=== PATIENT | female | born 1970 | race Caucasian/White ===

== ENCOUNTER 2019-02-02 14:00 | Emergency (ER) | payer OTHER, MEDICAID, SELFPAY ==
[2019-02-02 14:08] VITALS: BP 107/66; PULSE 98; RESP 22; TEMP 36.8; O2SAT 98
--- NOTE | 2019-02-02 14:20 | DI.RAD.S_ITS ---
PROCEDURE: XR CHEST 1V INDICATIONS: orthorpnea TECHNIQUE: One view of the chest was acquired. COMPARISON: [facility], CHRIS, RIBS UNILATERAL WITH PA CXR, 04/22/2012, 1:01. [facility], CHRIS, CHEST 2 VIEW, 08/19/2011, 23:25. FINDINGS: Surgical changes and devices: None. Lungs and pleura: Lungs are clear. No pleural effusions or pneumothorax. Mediastinum: Mediastinal contours appear normal. Heart size is normal. Bones and chest wall: No suspicious bony lesions. Overlying soft tissues appear unremarkable. IMPRESSION: No acute pulmonary process. Dictated by: Stephanie Leung M.D. on 02/02/2019 at 14:53 Approved by: Stephanie Leung M.D. on 02/02/2019 at 14:53
--- NOTE | 2019-02-02 14:25 | ED.NAVMDI ---
HPI - Nausea/Vomiting/Diarrhea <ENOC Valle - Last Filed: 02/02/19 22:12> General Chief complaint: Nausea/Vomiting/Diarrhea Stated complaint: n&v/urinary retension/urine brown x4-5 days ago Time Seen by Provider: 02/02/19 14:07 Source: patient Mode of arrival: wheelchair Limitations: no limitations History of Present Illness HPI Narrative: This is a 48-year-old female, previous smoker and IV drug user, presents to ED with nausea vomiting, subjective fever and chills for last 4-5 days. Patient reports has not had much p.o. intake of fluids or solid food due to nausea and vomiting. Patient reports no urine output for about last 24 hours. Patient noticed jaundice to her sclera and very dark urine when she had, right upper quadrant discomfort. Last night she felt difficulty breathing and noticed orthopnea and chest pain. Patient reports about a year ago she was told had severely increased liver enzymes but she had signed out against medical advice. 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 Patient felt so weak today had to get assistance from her father getting off the toilet. She reports has hysterectomy history in 2004. Related Data Home Medications Medication Instructions Recorded Confirmed buprenorphine-naloxone [Suboxone] 1 film SUBLINGUAL DIRECTED 02/02/19 02/02/19 Allergies Allergy/AdvReac Type Severity Reaction Status Date / Time No Known Drug Allergies Allergy Verified 02/02/19 17:13 Review of Systems <ENOC Valle - Last Filed: 02/02/19 22:12> Review of Systems Narrative: General: See HPI HEENT: Denies sinus pain, ear pain, sore throat, difficulty swallowing, dizziness. Respiratory: See HPI Cardiovascular: See HPI Gastrointestinal: See HPI : See HPI Musculoskeletal: Denies weakness, joint pain or bony pain. Skin: See HPI Neurologic: Reports weakness. headache, numbness, change in speech, confusion, seizures, incoordination. Psychiatric: No concerning psychosocial issues. 12-point review of systems is negative except for those stated above. PFSH <ENOC Valle - Last Filed: 02/02/19 22:12> Medical History (Updated 02/02/19 @ 18:40 by ENOC Valle) History of hysterectomy (Acute) Social History (Updated 02/02/19 @ 14:47 by ENOC Valle) Smoking Status: Former smoker substance use type: former substance user, heroin and IV drugs Social History (Updated 02/02/19 @ 14:47 by ENOC Valle) Smoking Status: Former smoker substance use type: former substance user, heroin and IV drugs Exam <ENOC Valle - Last Filed: 02/02/19 22:12> Narrative Exam Narrative: GEN: Alert, oriented x 3, ill appearing and under nourished, and mild distress. Head: Normal cephalic, atraumatic. No scalp or temporal tenderness, palpable mass or rash. EYES: Pupils are equal, round, and reactive to light and accommodation. Extraocular muscles are intact bilaterally. There is no subconjunctival hemorrhage, exudate and sclera mild icteric. ENT: Hearing grossly intact. Nose without bleeding, purulent discharge or deviation. Facial sinuses nontender to palpate. Mucous membrane dry, no mucosal lesion. Throat without erythema, tonsillar hypertrophy or exudate. Uvula in midline, airway patent. Neck: Trachea in midline. No JVD, non-tender without lymphadenopathy. No masses or thyroid megaly. Supple, non-tender and no meningeal signs. CARDIAC: Normal regular rate and rhythm without murmurs, gallops, or rubs. No chest wall tenderness. No peripheral edema, cyanosis or pallor. Capillary refill is less than 2 seconds. RESPIRATORY: Lungs are cleat to auscultate bilaterally. No cough, wheezes, rales, or rhonchi. No stridor, respiratory distress, increase work of breathing, or accessary muscle used. ABD: Abdomen soft, nontender and non-distended. No guarding or rebound tenderness to palpate. Bowel sounds are normal in all 4 quadrants. There is no palpable masses or organomegaly. EXT: Full painless ROM of all extremities with no loss of sensation, strength, effusion or edema. SKIN: Moist and warm, pale and light jaundice. No erythema, old skin lesions/scars. No unusual rash over visible areas. BACK: Nontender without deformity or crepitance. No flank tenderness. NEUROLOGICAL: Alert and oriented to place, time and person. Sensation and motor function intact bilaterally. No facial droops, dysphasia. PSYCHIATRIC: In tears. Without hallucinations, flat affect but no abnormal behaviors during the examination. Patient is not suicidal. Initial Vital Signs Initial Vital Signs: Vital Signs Temperature 98.2 F 02/02/19 14:08 Pulse Rate 98 H 02/02/19 14:08 Respiratory Rate 22 02/02/19 14:08 Blood Pressure 107/66 02/02/19 14:08 Pulse Oximetry 98 02/02/19 14:08 <Shannan Bucio DO - Last Filed: 02/03/19 08:11> Initial Vital Signs Initial Vital Signs: Vital Signs Temperature 98.2 F 02/02/19 14:08 Pulse Rate 98 H 02/02/19 14:08 Respiratory Rate 22 02/02/19 14:08 Blood Pressure 107/66 02/02/19 14:08 Pulse Oximetry 98 02/02/19 14:08 Course <ENOC Valle - Last Filed: 02/02/19 22:12> Orders Ordered: Discontinued Medications Sodium Chloride (Normal Saline 0.9%) 1,000 mls @ 999 mls/hr IV CONT STACEY Last Infusion: 02/02/19 17:11 Dose: 0 mls/hr Documented by: Admin: 02/02/19 15:50 Dose: 999 mls/hr Documented by: YANDY Sodium Chloride (Normal Saline 0.9%) 1,000 mls @ 1,000 mls/hr IV BOLUS ONE Stop: 02/02/19 18:10 Last Admin: 02/02/19 17:13 Dose: 1,000 mls/hr Documented by: EMMANUEL Piperacillin/Tazobactam/Dextrose (Zosyn) 3.375 gm in 50 mls @ 100 mls/hr IV NOW ONE Stop: 02/02/19 17:43 Last Admin: 02/02/19 17:34 Dose: 100 mls/hr Documented by: YANDY Sodium Chloride (Normal Saline 0.9%) 1,000 mls @ 150 mls/hr IV CONT STACEY Last Infusion: 02/02/19 19:02 Dose: 0 mls/hr Documented by: Infusion: 02/02/19 18:51 Dose: 150 mls/hr Documented by: Admin: 02/02/19 18:50 Dose: 150 mls/hr Documented by: YANDY Ondansetron HCl (Zofran) 4 mg IV NOW ONE Stop: 02/02/19 14:21 Last Admin: 02/02/19 15:51 Dose: 4 mg Documented by: YANDY Pantoprazole Sodium (Protonix) 40 mg IV NOW ONE Stop: 02/02/19 14:21 Last Admin: 02/02/19 15:50 Dose: 40 mg Documented by: YANDY Potassium Chloride (Klor-Con M20) 40 meq PO NOW ONE Stop: 02/02/19 17:15 Last Admin: 02/02/19 17:34 Dose: 40 meq Documented by: YANDY Vital Signs Vital signs: Vital Signs - 8 hr 02/02/19 14:08 02/02/19 16:04 02/02/19 17:07 Temperature 98.2 F Pulse Rate 98 H 84 92 H Respiratory Rate 22 16 18 Blood Pressure 107/66 Blood Pressure [Right Arm] 96/67 86/47 L Pulse Oximetry 98 99 99 02/02/19 17:27 02/02/19 18:08 02/02/19 18:58 Temperature Pulse Rate 89 86 92 H Respiratory Rate 13 16 Blood Pressure 89/55 L Blood Pressure [Right Arm] 95/64 97/46 L Pulse Oximetry 100 100 <Shannan Bucio DO - Last Filed: 02/03/19 08:11> Orders Ordered: Discontinued Medications Sodium Chloride (Normal Saline 0.9%) 1,000 mls @ 999 mls/hr IV CONT STACEY Last Infusion: 02/02/19 17:11 Dose: 0 mls/hr Documented by: Admin: 02/02/19 15:50 Dose: 999 mls/hr Documented by: YANDY Sodium Chloride (Normal Saline 0.9%) 1,000 mls @ 1,000 mls/hr IV BOLUS ONE Stop: 02/02/19 18:10 Last Admin: 02/02/19 17:13 Dose: 1,000 mls/hr Documented by: EMMANUEL Piperacillin/Tazobactam/Dextrose (Zosyn) 3.375 gm in 50 mls @ 100 mls/hr IV NOW ONE Stop: 02/02/19 17:43 Last Admin: 02/02/19 17:34 Dose: 100 mls/hr Documented by: YANDY Sodium Chloride (Normal Saline 0.9%) 1,000 mls @ 150 mls/hr IV CONT STACEY Last Infusion: 02/02/19 19:02 Dose: 0 mls/hr Documented by: Infusion: 02/02/19 18:51 Dose: 150 mls/hr Documented by: Admin: 02/02/19 18:50 Dose: 150 mls/hr Documented by: YANDY Ondansetron HCl (Zofran) 4 mg IV NOW ONE Stop: 02/02/19 14:21 Last Admin: 02/02/19 15:51 Dose: 4 mg Documented by: YANDY Pantoprazole Sodium (Protonix) 40 mg IV NOW ONE Stop: 02/02/19 14:21 Last Admin: 02/02/19 15:50 Dose: 40 mg Documented by: YANDY Potassium Chloride (Klor-Con M20) 40 meq PO NOW ONE Stop: 02/02/19 17:15 Last Admin: 02/02/19 17:34 Dose: 40 meq Documented by: YANDY Vital Signs Vital signs: Vital Signs - 8 hr 02/02/19 14:08 02/02/19 16:04 02/02/19 17:07 Temperature 98.2 F Pulse Rate 98 H 84 92 H Respiratory Rate 22 16 18 Blood Pressure 107/66 Blood Pressure [Right Arm] 96/67 86/47 L Pulse Oximetry 98 99 99 02/02/19 17:27 02/02/19 18:08 02/02/19 18:58 Temperature Pulse Rate 89 86 92 H Respiratory Rate 13 16 Blood Pressure 89/55 L Blood Pressure [Right Arm] 95/64 97/46 L Pulse Oximetry 100 100 MDM - Nausea/Vomiting/Diarrhea <ENOC Valle - Last Filed: 02/02/19 22:12> Differential Diagnosis Differential diagnosis: Likely dehydration and other (acute hepatitis, cholecystitis, cholangitis) Medical Records Attestation: I reviewed the patient's medical records. Lab Data Attestation: I reviewed the patient's lab results. Result diagrams: 02/02/19 15:30 02/02/19 15:30 Labs: Lab Results 09/09/19 09/09/19 09/09/19 Range/Units 15:30 15:30 15:30 WBC 6.0 (4.5-11.0) X10^3/uL RBC 4.46 (4.0-5.2) X10^6/uL Hgb 14.0 (12.0-16.0) g/dL Hct 40.1 (36-46) % MCV 90.1 (80-100) fL MCH 31.3 (26-34) PG MCHC 34.8 (30-36) % RDW 12.7 (11.6-14.8) % Plt Count 125 L (150-400) X10^3/uL Neut % (Auto) 48.7 L (50-75) % Lymph % (Auto) 38.3 (25-40) % [facility] % (Auto) 8.1 (3-14) % Eos % (Auto) 3.4 (2-4) % Baso % (Auto) 1.5 (0-2) % Neut # (Auto) 2900 (2935-6888) /uL Lymph # (Auto) 2300 (8487-5212) /uL [facility] # (Auto) 500 (0-900) /uL Eos # (Auto) 200 (0-450) /uL Baso # (Auto) 100 (0-100) /uL PT 14.0 H (10.1-12.7) SECONDS INR 1.2 (0.9-1.3) APTT 37 H (26.4-36.2) SECONDS Sodium (137-145) mmol/L Potassium (3.4-5.1) mmol/L Chloride (98-107) mmol/L Carbon Dioxide (22-32) mmol/L BUN (7-17) mg/dL Creatinine (0.52-1.04) mg/dL Estimated GFR (>60) mL/min BUN/Creatinine Ratio (6-22) Glucose (70-100) mg/dL Lactate (0.7-2.1) mmol/L Calcium (8.4-10.2) mg/dL Total Bilirubin (0.2-1.3) mg/dL AST (14-36) IU/L ALT (9-52) IU/L Alkaline Phosphatase (38-126) U/L Total Creatine Kinase (30-135) U/L CK-MB (CK-2) CK-MB (CK-2) Rel Index Troponin I (0.01-0.034) ng/mL Total Protein (6.3-8.2) g/dL Albumin (3.5-5.0) g/dL Globulin (1.7-4.1) g/dL Albumin/Globulin Ratio (1.0-2.8) Lipase (23-300) U/L Procalcitonin 0.88 H (<0.5) ng/mL Acetaminophen (10-30) ug/mL 02/02/19 02/02/19 02/02/19 Range/Units 15:30 15:30 15:30 WBC (4.5-11.0) X10^3/uL RBC (4.0-5.2) X10^6/uL Hgb (12.0-16.0) g/dL Hct (36-46) % MCV (80-100) fL MCH (26-34) PG MCHC (30-36) % RDW (11.6-14.8) % Plt Count (150-400) X10^3/uL Neut % (Auto) (50-75) % Lymph % (Auto) (25-40) % [facility] % (Auto) (3-14) % Eos % (Auto) (2-4) % Baso % (Auto) (0-2) % Neut # (Auto) (8890-6847) /uL Lymph # (Auto) (5642-5734) /uL [facility] # (Auto) (0-900) /uL Eos # (Auto) (0-450) /uL Baso # (Auto) (0-100) /uL PT (10.1-12.7) SECONDS INR (0.9-1.3) APTT (26.4-36.2) SECONDS Sodium 136 L (137-145) mmol/L Potassium 3.3 L (3.4-5.1) mmol/L Chloride 93 L (98-107) mmol/L Carbon Dioxide 31 (22-32) mmol/L BUN 15 (7-17) mg/dL Creatinine 0.50 L (0.52-1.04) mg/dL Estimated GFR > 60.0 (>60) mL/min BUN/Creatinine Ratio 30.0 H (6-22) Glucose 128 H (70-100) mg/dL Lactate 1.2 (0.7-2.1) mmol/L Calcium 8.9 (8.4-10.2) mg/dL Total Bilirubin 6.6 H (0.2-1.3) mg/dL AST 2267 H (14-36) IU/L ALT 3068 H (9-52) IU/L Alkaline Phosphatase 348 H (38-126) U/L Total Creatine Kinase 21 L (30-135) U/L CK-MB (CK-2) TNP CK-MB (CK-2) Rel Index TNP Troponin I < 0.012 (0.01-0.034) ng/mL Total Protein 7.2 (6.3-8.2) g/dL Albumin 3.7 (3.5-5.0) g/dL Globulin 3.5 (1.7-4.1) g/dL Albumin/Globulin Ratio 1.1 (1.0-2.8) Lipase 72 (23-300) U/L Procalcitonin (<0.5) ng/mL Acetaminophen (10-30) ug/mL 02/02/19 Range/Units 15:30 WBC (4.5-11.0) X10^3/uL RBC (4.0-5.2) X10^6/uL Hgb (12.0-16.0) g/dL Hct (36-46) % MCV (80-100) fL MCH (26-34) PG MCHC (30-36) % RDW (11.6-14.8) % Plt Count (150-400) X10^3/uL Neut % (Auto) (50-75) % Lymph % (Auto) (25-40) % [facility] % (Auto) (3-14) % Eos % (Auto) (2-4) % Baso % (Auto) (0-2) % Neut # (Auto) (8837-6562) /uL Lymph # (Auto) (1654-8144) /uL [facility] # (Auto) (0-900) /uL Eos # (Auto) (0-450) /uL Baso # (Auto) (0-100) /uL PT (10.1-12.7) SECONDS INR (0.9-1.3) APTT (26.4-36.2) SECONDS Sodium (137-145) mmol/L Potassium (3.4-5.1) mmol/L Chloride (98-107) mmol/L Carbon Dioxide (22-32) mmol/L BUN (7-17) mg/dL Creatinine (0.52-1.04) mg/dL Estimated GFR (>60) mL/min BUN/Creatinine Ratio (6-22) Glucose (70-100) mg/dL Lactate (0.7-2.1) mmol/L Calcium (8.4-10.2) mg/dL Total Bilirubin (0.2-1.3) mg/dL AST (14-36) IU/L ALT (9-52) IU/L Alkaline Phosphatase (38-126) U/L Total Creatine Kinase (30-135) U/L CK-MB (CK-2) CK-MB (CK-2) Rel Index Troponin I (0.01-0.034) ng/mL Total Protein (6.3-8.2) g/dL Albumin (3.5-5.0) g/dL Globulin (1.7-4.1) g/dL Albumin/Globulin Ratio (1.0-2.8) Lipase (23-300) U/L Procalcitonin (<0.5) ng/mL Acetaminophen < 10 L (10-30) ug/mL Imaging Data US-abdomen : Radiologist's impression: [place] [address] Ultrasound Report Signed Patient: Gunner Christy [facility]#: [id number] : 1970Acct:[id number] Age/Sex: 48 / FDate of Service: 02/02/19 Loc: ED Accession Number: [id number] Procedure: US abdomen complete Ordering Provider: Ty Jones PROCEDURE: US ABDOMEN COMPLETE INDICATIONS: RUQ PAIN, JAUNDICE TECHNIQUE: Real-time scanning was performed of the abdominal and retroperitoneal organs, with image documentation. COMPARISON: [facility], CT, ABDOMEN/PELVIS WITH CONTRAST, 04/09/2017, 4:37. [facility], US, ABDOMEN COMPLETE, 04/09/2017, 1:39. FINDINGS: Liver: The liver demonstrates diffusely increased echotexture without focal abnormalities consistent with chronic hepatocellular disease/hepatic steatosis. Gallbladder: Gallbladder demonstrates areas of mild wall thickening measuring up to 4 mm in thickness. There is a positive sonographic Hurst sign. Small amount of pericholecystic fluid. No gallstones identified. Biliary ducts: Intrahepatic bile ducts are non-dilated. Extrahepatic bile duct caliber measures 4 mm. Normal is 6-7 mm or less in diameter, or 10 mm or less post-cholecystectomy. Pancreas: Visualized portions of the pancreas are sonographically normal. Spleen: Mild splenomegaly as before. Spleen measures up to 14 cm in maximum dimension. Kidneys: Kidneys are normal in size and echotexture. Right kidney measures 11.4 cm long; left kidney measures 12.3 cm long. No hydronephrosis or nephrolithiasis. No solid masses. Aorta: Visualized aorta is normal in caliber at less than 3 cm. Iliacs: Proximal common iliac arteries are normal in caliber at less than 2.5 cm. IVC: Intrahepatic inferior vena cava is patent. Miscellaneous: No free abdominal fluid. Prominent periportal lymph node near the main portal vein measuring up to 1.4 cm in maximum short axis dimension. IMPRESSION: 1. Persistent gallbladder wall thickening with pericholecystic fluid and positive sonographic Hurst's sign. No gallstones identified. Findings may represent acute acalculous cholecystitis. No biliary ductal dilatation. 2. Persistent mild splenomegaly. 3. The liver demonstrates diffusely increased echotexture without focal abnormalities consistent with chronic hepatocellular disease/hepatic steatosis. Dictated by: Zhang Mendiola M.D. on 02/02/2019 at 15:39 Approved by: Zhang Mendiola M.D. on 02/02/2019 at 15:46 Chest x-ray: Radiologist's impression: [address] [address] XRay Report Signed Patient: Gunner Christy [facility]#: [id number] : 1970Acct:[id number] Age/Sex: 48 / FDate of Service: 02/02/19 Loc: ED Accession Number: [id number] Procedure: XR chest 1V Ordering Provider: Ty Jones PROCEDURE: XR CHEST 1V INDICATIONS: orthorpnea TECHNIQUE: One view of the chest was acquired. COMPARISON: [facility], CR, RIBS UNILATERAL WITH PA CXR, 04/22/2012, 1:01. [facility], CR, CHEST 2 VIEW, 08/19/2011, 23:25. FINDINGS: Surgical changes and devices: None. Lungs and pleura: Lungs are clear. No pleural effusions or pneumothorax. Mediastinum: Mediastinal contours appear normal. Heart size is normal. Bones and chest wall: No suspicious bony lesions. Overlying soft tissues appear unremarkable. IMPRESSION: No acute pulmonary process. Dictated by: Stephanie Leung M.D. on 02/02/2019 at 14:53 Approved by: Stephanie Leung M.D. on 02/02/2019 at 14:53 ECG Data Attestation: I personally reviewed and interpreted this ECG as follows: Prior ECG tracings: available for review Interpretation: Sinus rhythm rate at 85. Normal axis. No ST elevation or depression. Previous EKG shows sinus rhythm with first-degree AV block. MDM Narrative Medical decision making narrative: This is a 48-year-old female with history of heroin IV drug use and currently is taking Suboxone and drug free for the last 14 months. She complain of right upper quadrant pain with multiple nausea vomiting for 4 days with difficulty breathing noticed yesterday. She had subjective fever and chills. Her sister noticed jaundice for last 4 days. Patient has history of on sure type of hepatitis. Her physical exam showed positive Hurst's sign but no organomegaly felt. She reports has been eating well for last 4-5 days and no urine output for last 24 hour. When she arrived she was tachycardic with normal respiration blood pressure. She had no elevated white count, mildly decreased platelet count, PT and PTT but with normal INR. LFT test shows significantly elevated AST, ALT, alkaline phosphatase with bilirubin of 6.6. Patient had subjective fever and chills. Lactate level was normal. Hepatitis panel is pending, patient has not voided yet after 2 L of normal saline. Her blood pressure has been decreased to mid 80s to 90s with heart rate in 80s. Without ST elevation or depression. The past she had normal sinus with first-degree AV block. Chest x-ray is without acute findings. Ultrasound on abdomen test indicates acute acalculous cholecystitis, no bile duct dilation was seen, mild splenomegaly, chronic hepatocellular disease or hepatic steatosis. Patient was treated with IV Zosyn 3.375 G. The patient's cardiac enzyme test was negative. Bladder scan was done and shows 250 of urine in her bladder after the 2nd L IV fluid infusion. The patient's case was discussed with hospital general surgeon and he recommended that patient should be transfer out to higher care of setting who has a GI specialist in case patient needs ERCP. [facility] GI specialist was consulted and he states this patient does not appears to be needing ERCP at this time. He suggested patient being consulted for medical for acute hepatitis disease. Kindly, Dr. Oneill the hospitalist except the patient and her care for an evaluation and treatment. Patient will be transferred to [facility] via [facility] level for higher level of care. All required documents has been signed and provided to transfer team. Patient is alert oriented at this time, blood pressure remaining in upper 90s and systolic with 60s and diastolic. Patient reports her nausea has improved. Patient agrees with treatment plan and transfer to [place]. Before patient transfer to [place], procalcitonin result came back as 0.88 which is elevated from normal range of 0.5. <Shannan Bucio, - Last Filed: 02/03/19 08:11> Lab Data Labs: Lab Results 02/02/19 02/02/19 02/02/19 Range/Units 15:30 15:30 15:30 WBC 6.0 (4.5-11.0) X10^3/uL RBC 4.46 (4.0-5.2) X10^6/uL Hgb 14.0 (12.0-16.0) g/dL Hct 40.1 (36-46) % MCV 90.1 (80-100) fL MCH 31.3 (26-34) PG MCHC 34.8 (30-36) % RDW 12.7 (11.6-14.8) % Plt Count 125 L (150-400) X10^3/uL Neut % (Auto) 48.7 L (50-75) % Lymph % (Auto) 38.3 (25-40) % [facility] % (Auto) 8.1 (3-14) % Eos % (Auto) 3.4 (2-4) % Baso % (Auto) 1.5 (0-2) % Neut # (Auto) 2900 (9297-7633) /uL Lymph # (Auto) 2300 (9907-0050) /uL [facility] # (Auto) 500 (0-900) /uL Eos # (Auto) 200 (0-450) /uL Baso # (Auto) 100 (0-100) /uL PT 14.0 H (10.1-12.7) SECONDS INR 1.2 (0.9-1.3) APTT 37 H (26.4-36.2) SECONDS Sodium (137-145) mmol/L Potassium (3.4-5.1) mmol/L Chloride (98-107) mmol/L Carbon Dioxide (22-32) mmol/L BUN (7-17) mg/dL Creatinine (0.52-1.04) mg/dL Estimated GFR (>60) mL/min BUN/Creatinine Ratio (6-22) Glucose (70-100) mg/dL Lactate (0.7-2.1) mmol/L Calcium (8.4-10.2) mg/dL Total Bilirubin (0.2-1.3) mg/dL AST (14-36) IU/L ALT (9-52) IU/L Alkaline Phosphatase (38-126) U/L Total Creatine Kinase (30-135) U/L CK-MB (CK-2) CK-MB (CK-2) Rel Index Troponin I (0.01-0.034) ng/mL Total Protein (6.3-8.2) g/dL Albumin (3.5-5.0) g/dL Globulin (1.7-4.1) g/dL Albumin/Globulin Ratio (1.0-2.8) Lipase (23-300) U/L Procalcitonin 0.88 H (<0.5) ng/mL Acetaminophen (10-30) ug/mL 02/02/19 02/02/19 02/02/19 Range/Units 15:30 15:30 15:30 WBC (4.5-11.0) X10^3/uL RBC (4.0-5.2) X10^6/uL Hgb (12.0-16.0) g/dL Hct (36-46) % MCV (80-100) fL MCH (26-34) PG MCHC (30-36) % RDW (11.6-14.8) % Plt Count (150-400) X10^3/uL Neut % (Auto) (50-75) % Lymph % (Auto) (25-40) % [facility] % (Auto) (3-14) % Eos % (Auto) (2-4) % Baso % (Auto) (0-2) % Neut # (Auto) (7545-8149) /uL Lymph # (Auto) (5350-1091) /uL [facility] # (Auto) (0-900) /uL Eos # (Auto) (0-450) /uL Baso # (Auto) (0-100) /uL PT (10.1-12.7) SECONDS INR (0.9-1.3) APTT (26.4-36.2) SECONDS Sodium 136 L (137-145) mmol/L Potassium 3.3 L (3.4-5.1) mmol/L Chloride 93 L (98-107) mmol/L Carbon Dioxide 31 (22-32) mmol/L BUN 15 (7-17) mg/dL Creatinine 0.50 L (0.52-1.04) mg/dL Estimated GFR > 60.0 (>60) mL/min BUN/Creatinine Ratio 30.0 H (6-22) Glucose 128 H (70-100) mg/dL Lactate 1.2 (0.7-2.1) mmol/L Calcium 8.9 (8.4-10.2) mg/dL Total Bilirubin 6.6 H (0.2-1.3) mg/dL AST 2267 H (14-36) IU/L ALT 3068 H (9-52) IU/L Alkaline Phosphatase 348 H (38-126) U/L Total Creatine Kinase 21 L (30-135) U/L CK-MB (CK-2) TNP CK-MB (CK-2) Rel Index TNP Troponin I < 0.012 (0.01-0.034) ng/mL Total Protein 7.2 (6.3-8.2) g/dL Albumin 3.7 (3.5-5.0) g/dL Globulin 3.5 (1.7-4.1) g/dL Albumin/Globulin Ratio 1.1 (1.0-2.8) Lipase 72 (23-300) U/L Procalcitonin (<0.5) ng/mL Acetaminophen (10-30) ug/mL 02/02/19 Range/Units 15:30 WBC (4.5-11.0) X10^3/uL RBC (4.0-5.2) X10^6/uL Hgb (12.0-16.0) g/dL Hct (36-46) % MCV (80-100) fL MCH (26-34) PG MCHC (30-36) % RDW (11.6-14.8) % Plt Count (150-400) X10^3/uL Neut % (Auto) (50-75) % Lymph % (Auto) (25-40) % [facility] % (Auto) (3-14) % Eos % (Auto) (2-4) % Baso % (Auto) (0-2) % Neut # (Auto) (7577-5743) /uL Lymph # (Auto) (9869-8981) /uL [facility] # (Auto) (0-900) /uL Eos # (Auto) (0-450) /uL Baso # (Auto) (0-100) /uL PT (10.1-12.7) SECONDS INR (0.9-1.3) APTT (26.4-36.2) SECONDS Sodium (137-145) mmol/L Potassium (3.4-5.1) mmol/L Chloride (98-107) mmol/L Carbon Dioxide (22-32) mmol/L BUN (7-17) mg/dL Creatinine (0.52-1.04) mg/dL Estimated GFR (>60) mL/min BUN/Creatinine Ratio (6-22) Glucose (70-100) mg/dL Lactate (0.7-2.1) mmol/L Calcium (8.4-10.2) mg/dL Total Bilirubin (0.2-1.3) mg/dL AST (14-36) IU/L ALT (9-52) IU/L Alkaline Phosphatase (38-126) U/L Total Creatine Kinase (30-135) U/L CK-MB (CK-2) CK-MB (CK-2) Rel Index Troponin I (0.01-0.034) ng/mL Total Protein (6.3-8.2) g/dL Albumin (3.5-5.0) g/dL Globulin (1.7-4.1) g/dL Albumin/Globulin Ratio (1.0-2.8) Lipase (23-300) U/L Procalcitonin (<0.5) ng/mL Acetaminophen < 10 L (10-30) ug/mL Critical Care Time <Ty [email or web address] - Last Filed: 02/02/19 22:12> Critical Care Time Critical Care Time: Yes Total Critical Care Time: 30 Attestation: Reviewing test results including blood, chest x-ray, EKG, ultrasound. And coordinating patient's admission, or transfer to higher level of care by phone calls. Discharge Plan Departure Patient Disposition: [facility] Clinical Impression: Acute acalculous cholecystitis, Hepatitis, Acute dehydration Discharge Date/Time: 02/02/19 18:55 Prescriptions: No Action buprenorphine-naloxone [Suboxone] 8-2 mg film 1 film sublingual DIRECTED RF: 0 Referrals: Mark Parkinson MD [Primary Care Provider] -
--- NOTE | 2019-02-02 15:18 | PC.NURSE ---
Unable to gain IV access. Lian Gibbons at bedside w/ US assisted midline insertion.
[2019-02-02] MEDS: PANTOPRAZOLE 40 MG VIAL IV (15:50)
[2019-02-02] MEDS: SODIUM CHLORIDE 0.9% 1,000 ML 999 ML IV (15:50)
[2019-02-02] MEDS: ONDANSETRON 4 MG/2 ML INJ IV (15:51)
[2019-02-02 15:52] LABS: Add Manual Diff / Slide Review NO; Basophils Absolute Auto 100 /uL (0-100); Basophils Percent Auto 1.5 % (0-2); Eosinophils Absolute Auto 200 /uL (0-450); Eosinophils Percent Auto 3.4 % (2-4); Hematocrit 40.1 % (36-46); Lymphocytes Absolute Auto 2300 /uL (1100-4500); Lymphocytes Percent Auto 38.3 % (25-40); Mean Corpuscular HGB Conc 34.8 % (30-36); Mean Corpuscular Hemoglobin 31.3 PG (26-34); Mean Corpuscular Volume 90.1 fL (80-100); Monocytes Absolute Auto 500 /uL (0-900); Monocytes Percent Auto 8.1 % (3-14); Neutrophils Absolute Auto 2900 /uL (1500-7000); Neutrophils Percent Auto 48.7 % (50-75); Platelet Count 125 X10^3/uL (150-400); Red Blood Cell Count 4.46 X10^6/uL (4.0-5.2); Red Cell Distribution Width 12.7 % (11.6-14.8)
[2019-02-02 15:57] LABS: INR 1.2 (0.9-1.3)
[2019-02-02 15:59] LABS: PTT Partial Thromboplastin Tim 37 SECONDS (26.4-36.2)
--- NOTE | 2019-02-02 16:01 | PC.NURSE ---
20g 8cm power midline cath placed via ultrasound in upper left arm Basilic vein, labs drawn and line flushes well. Pt tollerated procedure well.
[2019-02-02 16:04] VITALS: BP 96/67; PULSE 84; RESP 16; O2SAT 99
[2019-02-02 16:04] LABS: Albumin 3.7 g/dL (3.5-5.0); Albumin Globulin Ratio 1.1 (1.0-2.8); Alkaline Phosphatase 348 U/L (38-126); Bilirubin Total 6.6 mg/dL (0.2-1.3); Blood Urea Nitrogen 15 mg/dL (7-17); Calcium 8.9 mg/dL (8.4-10.2); Carbon Dioxide 31 mmol/L (22-32); Chloride 93 mmol/L (98-107); Estimated Glomerular Filt Rate > 60.0 mL/min (>60); Globulin 3.5 g/dL (1.7-4.1); Glucose 128 mg/dL (70-100); HEMOLYSIS < 15 (0-50); Lactate (Lactic Acid) 1.2 mmol/L (0.7-2.1); Lipase 72 U/L (23-300); Potassium 3.3 mmol/L (3.4-5.1); Sodium 136 mmol/L (137-145); Total Protein 7.2 g/dL (6.3-8.2)
[2019-02-02 16:05] LABS: Creatine Kinase 21 U/L (30-135)
[2019-02-02 16:20] LABS: Troponin I < 0.012 ng/mL (0.01-0.034)
[2019-02-02 16:21] LABS: Alanine Aminotransferase 3068 IU/L (9-52); Aspartate Aminotransferase 2267 IU/L (14-36)
[2019-02-02 16:50] LABS: Acetaminophen < 10 ug/mL (10-30)
[2019-02-02 16:55] LABS: Procalcitonin 0.88 ng/mL (<0.5)
[2019-02-02 17:07] VITALS: BP 86/47; PULSE 92; RESP 18; O2SAT 99
[2019-02-02] MEDS: SODIUM CHLORIDE 0.9% 1,000 ML 1000 ML IV (17:13)
[2019-02-02 17:27] VITALS: BP 95/64; PULSE 89
[2019-02-02] MEDS: POTASSIUM CHLORIDE 20 MEQ TAB 40 MEQ PO (17:34)
[2019-02-02] MEDS: PIPERACILLIN-TAZO 3.375 GM/50 ML FROZ.PIGGY IV (17:34)
[2019-02-02 18:08] VITALS: BP 97/46; PULSE 86; RESP 13; O2SAT 100
[2019-02-02] MEDS: SODIUM CHLORIDE 0.9% 1,000 ML 150 ML IV (18:50)
[2019-02-02 18:58] VITALS: BP 89/55; PULSE 92; RESP 16; O2SAT 100
[2019-02-07 14:53] LABS: Hepatitis A Antibody IgM NONREACTIVE; Hepatitis B Core Antibody IgM NONREACTIVE; Hepatitis B Surface Antigen NONREACTIVE; Hepatitis C Antibody REACTIVE
--- NOTE | 2019-02-23 14:25 | PC.NURSE ---
late entry per LEN. Pallavi IV completed on 02/02/2019 at 1750, CRISELDA IV completed 1830.
== END 2019-02-02 18:55 | disposition short-term general hospital (02) ==
PROVIDERS: Emergency Provider Nurse Practitioner Family; PCP Family Medicine
DX: K81.0 Acute cholecystitis (principal); K75.9 Inflammatory liver disease, unspecified; E86.0 Dehydration
CPT/HCPCS: 36591; 51798; 71045; 76700; 80053; 80074; 80329; 82550; 83605; 83690; 84145; 84484; 85025; 85610; 85730; 93005; 93010; 96361; 96365; 96375; 99284; 99285; C9113; G0480; J2405; J2543

== ENCOUNTER 2019-08-27 18:17 | Emergency (ER) | payer OTHER, MEDICAID, SELFPAY ==
[2019-08-27 18:20] VITALS: BP 124/73; PULSE 98; RESP 14; TEMP 36.6; O2SAT 100; BMI 21.2
--- NOTE | 2019-08-27 18:27 | ED.ABDPAIN ---
HPI - Abdominal Pain <ENOC Alba - Last Filed: 08/27/19 19:51> General Chief Complaint: Urogenital-Female Stated Complaint: states bad UTI Time Seen by Provider: 08/27/19 18:23 History of Present Illness HPI narrative: 49-year-old female with a history of heroin use, presents to the emergency department for dysuria, frequency, and increased urinary urgency the past month. She also noted she developed right sided flank pain over the past week. She states she is going into treatment for heroin use and needs to have her it UTI treated. She states she has a history of frequent UTIs, she was ?nervous to come into the emergency department for treatment due to the coronavirus. Patient states she last injected heroin this morning, denies any fevers, chills, nausea, vomiting, diarrhea, abdominal pain, dizziness, or any other concerns. Related Data Home Medications Medication Instructions Recorded Confirmed buprenorphine-naloxone [Suboxone] 1 film SUBLINGUAL DIRECTED 02/02/19 02/02/19 Previous Rx's Medication Instructions Recorded cephalexin 500 mg PO BID 14 Days #28 cap 08/27/19 Allergies Allergy/AdvReac Type Severity Reaction Status Date / Time No Known Drug Allergies Allergy Verified 08/27/19 18:29 Review of Systems <ENOC Alba - Last Filed: 08/27/19 19:51> Review of Systems Narrative: REVIEW OF SYSTEMS: GENERAL: Denies fever or chills. HENT: No head trauma. CARDIOVASCULAR: No chest pain. RESPIRATORY: No shortness of breath or cough. GASTROINTESTINAL: No nausea, vomiting, or abdominal pain, see HPI. GENITOURINARY: Reports dysuria, See HPI. No vaginal discharge or dyspareunia. Denies concerns for STIs MUSCULOSKELETAL: No trauma. INTEGUMENTARY: No rash, lesions, or pruritus. NEURO: No memory loss or confusion. Patient History <ENOC Alba - Last Filed: 08/27/19 19:51> Medical History Heroin use (Acute) Surgical History History of hysterectomy (Acute) Social History Smoking Status: Former smoker substance use type: former substance user, heroin and IV drugs Smoking Status: Former smoker Exam <ENOC Alba - Last Filed: 08/27/19 19:51> Initial Vital Signs Initial Vital Signs: Vital Signs Temperature 97.9 F 08/27/19 18:20 Pulse Rate 98 H 08/27/19 18:20 Respiratory Rate 14 08/27/19 18:20 Blood Pressure 124/73 08/27/19 18:20 Pulse Oximetry 100 08/27/19 18:20 PHYSICAL EXAMINATION: GENERAL: Well groomed, alert, and cooperative. Answers questions promptly and appropriately. Vital signs noted. HENT: Normocephalic, atraumatic. Hearing intact. EYES: No periorbital swelling. CARDIOVASCULAR: Regular rate. RESPIRATORY: Normal respiratory rate, trachea midline, airway patent. No stridor, nasal flaring or accessory muscle use. GASTROINTESTINAL: Bowel sounds normoactive. Abdomen is soft and non-tender. No organomegaly, no palpable masses. GENITALURINARY: Mild right CVA tenderness. MUSCULOSKELETAL: Normal gait and coordination. Equal tone and mass bilaterally. SKIN: Warm, dry, soft, appropriate color for ethnicity. No lesions, rashes, or wounds to visulized areas. NEURO: Alert and Oriented X 3. Good coordination. No ataxia, or sensory deficits, or cognitive issues. PSYCH: Appropriate affect and mood. <Valentino Oquendo DO - Last Filed: 08/27/19 20:39> Initial Vital Signs Initial Vital Signs: Vital Signs Temperature 97.9 F 08/27/19 18:20 Pulse Rate 98 H 08/27/19 18:20 Respiratory Rate 14 08/27/19 18:20 Blood Pressure 124/73 08/27/19 18:20 Pulse Oximetry 100 08/27/19 18:20 Course <ENOC Alba - Last Filed: 08/27/19 19:51> Course Course Narrative: Patient was given her 1st dose of antibiotics in the emergency department due to high risk factors for noncompliance such as drug use and plans for rehab. Orders Ordered: ED Orders 08/27/19 18:20 Urine Culture Stat Urine Microscopic Stat Discontinued Medications Cephalexin HCl (Keflex) 500 mg PO NOW ONE Stop: 08/27/19 18:47 Last Admin: 04/02/20 19:05 Dose: 500 mg Documented by: YANDY Vital Signs Vital signs: Vital Signs - 8 hr 08/27/19 18:20 Temperature 97.9 F Pulse Rate 98 H Respiratory Rate 14 Blood Pressure 124/73 Pulse Oximetry 100 <Valentino Oquendo DO - Last Filed: 08/27/19 20:39> Orders Ordered: ED Orders 08/27/19 18:20 Urine Culture Stat Urine Microscopic Stat Discontinued Medications Cephalexin HCl (Keflex) 500 mg PO NOW ONE Stop: 08/27/19 18:47 Last Admin: 08/27/19 19:05 Dose: 500 mg Documented by: YANDY Vital Signs Vital signs: Vital Signs - 8 hr 08/27/19 18:20 Temperature 97.9 F Pulse Rate 98 H Respiratory Rate 14 Blood Pressure 124/73 Pulse Oximetry 100 MDM - Abdominal Pain <EONC Alba - Last Filed: 08/27/19 19:51> Medical Records Attestation: I reviewed the patient's medical records. Lab Data Attestation: I reviewed the patient's lab results. Labs: Lab Results 08/27/19 Range/Units 18:20 Urine RBC 0-1/hpf (0-5/HPF) Urine WBC 10-30/hpf H (0-5/HPF) Ur Squamous Epith Cells 1-5 /hpf (0-5/HPF) Ur Transition Epith Cell 1-5/hpf (0-5/HPF) Urine Bacteria Many (>30) H (None) Urine Trichomonas 1-5/hpf H (None Seen) Ur Culture Indicated? Specimen cultured Point of care testing: Urine Dip Bedside Urine Glucose Negative Bedside Urine Bilirubin - Negative Bedside Urine Ketone - Negative Urine Specific Seffner 1.020 Bedside Urine Occult Blood - Negative Bedside Urine pH 6.5 Bedside Urine Protein +/- 15 Bedside Urine Urobilinogen +/- 1mg Bedside Urine Nitrite + Positive Bedside Urine Leukocytes ++ 125 Esterase MDM Narrative Medical decision making narrative: History and examination concerning for pyelonephritis due to right-sided flank pain, CVA tenderness, POC and microscopic urine positive for white blood cells, bacteria, and nitrates. Patient was given cephalexin to treat condition. She was given the 1st dose in the emergency department due to high risk factors for noncompliance. Patient is a candidate for outpatient treatment of pyelonephritis due to lack of nausea, uncontrollable vomiting, high fevers, or severe pain. She was counseled extensively to return emergency department for any new or worsening symptoms. She agreed to plan of care verbalized understanding. <Valentino Oquendo DO - Last Filed: 08/27/19 20:39> Lab Data Labs: Lab Results 08/27/19 Range/Units 18:20 Urine RBC 0-1/hpf (0-5/HPF) Urine WBC 10-30/hpf H (0-5/HPF) Ur Squamous Epith Cells 1-5 /hpf (0-5/HPF) Ur Transition Epith Cell 1-5/hpf (0-5/HPF) Urine Bacteria Many (>30) H (None) Urine Trichomonas 1-5/hpf H (None Seen) Ur Culture Indicated? Specimen cultured Point of care testing: Urine Dip Bedside Urine Glucose Negative Bedside Urine Bilirubin - Negative Bedside Urine Ketone - Negative Urine Specific Seffner 1.020 Bedside Urine Occult Blood - Negative Bedside Urine pH 6.5 Bedside Urine Protein +/- 15 Bedside Urine Urobilinogen +/- 1mg Bedside Urine Nitrite + Positive Bedside Urine Leukocytes ++ 125 Esterase Discharge Plan Departure Patient Disposition: Home Clinical Impression: Pyelonephritis Discharge Date/Time: 08/27/19 19:12 Instructions: DI for Kidney Infection Activity Restrictions/Additional Instructions: Thank you for entrusting me with your care today. As discussed, your test results show that you have a urinary tract infection, due to your right-sided back pain you most likely have pyelonephritis which is an infection in your kidney. I prescribed you an antibiotic this was sent to [facility] in [place], please take this complete course so that the infection does not return. We will call you in 2-3 days if your antibiotics need to be changed based off your urine culture. Return to the emergency department for any new or worsening symptoms such as uncontrollable vomiting, severe pain, high fevers, weakness, syncope, or any other concerns. Prescriptions: New cephalexin 500 mg capsule 500 mg PO BID 14 Days Qty: 28 RF: 0 No Action buprenorphine-naloxone [Suboxone] 8-2 mg film 1 film sublingual DIRECTED RF: 0 Referrals: Mark Parkinson MD [Primary Care Provider] - <Valentino Oquendo DO - Last Filed: 08/27/19 20:39> Cosign ED Attending Cosignature Attestation: I was immediately available in the department for consultation. This documentation has been reviewed and I agree with assessment and plan. Supervised by Valenitno Oquendo, DO
[2019-08-27 18:53] LABS: Bacteria Urine Many (>30); RBC Urine 0-1/HPF (0-5/HPF); Squamous Epithelial Cell Urine 1-5 /HPF (0-5/HPF); Transitional Epi Cells Urine 1-5/HPF (0-5/HPF); Trichomonas Urine 1-5/HPF (None Seen); WBC Urine 10-30/HPF (0-5/HPF)
[2019-08-27 18:54] LABS: Culture Indicated Urine Specimen Cultured
[2019-08-27] MEDS: cephALEXin 250 MG CAPSULE 500 MG PO (19:05)
== END 2019-08-27 19:12 | disposition home or self-care (01) ==
PROVIDERS: Emergency Provider Nurse Practitioner; PCP Family Medicine
DX: N12 Tubulo-interstitial nephritis, not specified as acute or chronic (principal); F11.10 Opioid abuse, uncomplicated
CPT/HCPCS: 81003; 81015; 87077; 87086; 87186; 99283

== ENCOUNTER 2019-09-17 22:59 | Emergency (ER) | payer OTHER, MEDICAID, SELFPAY ==
[2019-09-17 23:12] VITALS: BP 121/69; PULSE 109; RESP 15; TEMP 37.3; O2SAT 97; BMI 21.2
[2019-09-17 23:36] LABS: RBC Urine None Seen (0-5/HPF)
[2019-09-17 23:51] LABS: Squamous Epithelial Cell Urine 5-10 /HPF (0-5/HPF); WBC Urine 5-10/HPF (0-5/HPF)
[2019-09-17 23:52] LABS: Bacteria Urine Moderate (10-30); Culture Indicated Urine Cult Not Indicated; Trichomonas Urine 1-5/HPF (None Seen)
--- NOTE | 2019-09-17 23:56 | ED.GENADULT ---
HPI - General Adult General Chief complaint: Urogenital-Female Stated complaint: UTI over a week, getting worse, meds no help Time Seen by Provider: 09/17/19 23:24 Source: patient Mode of arrival: Ambulatory Limitations: no limitations History of Present Illness HPI narrative: Patient is a 49-year-old female presents the emergency department for which he states is urinary tract infection that she has had for the past several weeks that is not improving. She was seen here in the emergency department several weeks ago. Was diagnosed with pyelonephritis. Was sent home with a prescription for Keflex. Has been taking the Keflex. Is not completely done with it yet however she states that her symptoms have continued. She states she is having vaginal discharge that is colored and foul smelling. She denies any urinary symptoms. Denies any back pain or fevers or vomiting. She is tolerating the antibiotics without any problems. She states she has never had a sexually transmitted disease in the past. She does have 1 sexual partner. She stated that she was concerned about sexually transmitted diseases now that she is having this vaginal discharge and also that her symptoms are not improving with antibiotics. She also states she has had yeast infection in the past and this does not feel like a yeast infection. Related Data Home Medications Medication Instructions Recorded Confirmed buprenorphine-naloxone [Suboxone] 1 film SUBLINGUAL DIRECTED 02/02/19 02/02/19 Previous Rx's Medication Instructions Recorded cephalexin 500 mg PO BID 14 Days #28 cap 08/27/19 Allergies Allergy/AdvReac Type Severity Reaction Status Date / Time No Known Drug Allergies Allergy Verified 08/27/19 18:29 Review of Systems Constitutional Constitutional: Denies fever(s) Cardiovascular Cardiovascular: Denies chest pain and Denies dyspnea Respiratory Respiratory: Denies dyspnea Gastrointestinal Gastrointestinal: Denies nausea and Denies vomiting Genitourinary Genitourinary: Denies dysuria, Denies pelvic pain, Denies flank pain, Reports vaginal discharge and Reports vaginal odor Musculoskeletal Musculoskeletal: Denies myalgias and Denies arthralgias Integumentary/Breasts Skin/Breast: Denies rash Neurologic Neurologic: Denies behavioral changes Psychiatric Psychiatric: Denies behavioral changes Hematologic/Lymphatic Hematologic/Lymphatic: Denies easy bleeding and Denies easy bruising Patient History Medical History Heroin use (Acute) Social History Smoking Status: Former smoker substance use type: former substance user, heroin and IV drugs Smoking Status: Former smoker alcohol intake frequency: holidays/special occasions only Substance Use Type: heroin Exam Initial Vital Signs Initial Vital Signs: Vital Signs Temperature 99.1 F 09/17/19 23:12 Pulse Rate 109 H 09/17/19 23:12 Respiratory Rate 15 09/17/19 23:12 Blood Pressure 121/69 09/17/19 23:12 Pulse Oximetry 97 09/17/19 23:12 Const General: cooperative and comfortable Limitations: mental status not altered HENMT Head: normal to inspection and normocephalic Resp Effort & Inspection: normal respiratory effort Cardio Rate: regular rate GI Inspection: non-distended Skin Lesions: no lesions Rashes: no rashes Neuro General: alert, awake and oriented x3 Extrem General: normal to inspection and capillary refill normal Psych Appearance: grossly normal and well kempt Course Orders Ordered: ED Orders 09/17/19 23:05 Chlamydia Gonorrhea PCR -URINE Stat Urine Culture Stat Urine Microscopic Stat Vital Signs Vital signs: Vital Signs - 8 hr 09/17/19 23:12 Temperature 99.1 F Pulse Rate 109 H Respiratory Rate 15 Blood Pressure 121/69 Pulse Oximetry 97 Medical Decision Making Lab Data Lab results reviewed: Yes I reviewed the patient's lab results. Labs: Lab Results 09/17/19 09/17/19 Range/Units 23:05 23:05 Urine RBC None seen (0-5/HPF) Urine WBC 5-10/hpf H (0-5/HPF) Ur Squamous Epith Cells 5-10 /hpf H (0-5/HPF) Urine Bacteria Moderate (10-30) H (None) Urine Trichomonas 1-5/hpf H (None Seen) Ur Culture Indicated? Cult not indicated Ur Chlamydia DNA (PCR) Not detected N gonorrhoeae DNA (PCR) Not detected Point of Care Testing Test Results Negative Urine Dip Bedside Urine Glucose Negative Bedside Urine Bilirubin - Negative Bedside Urine Ketone - Negative Urine Specific Wilbur 1.025 Bedside Urine Occult Blood - Negative Bedside Urine pH 6.0 Bedside Urine Protein +/- 15 Bedside Urine Urobilinogen - Negative Bedside Urine Nitrite - Negative Bedside Urine Leukocytes +++ 500 Esterase Point of care testing: Point of Care Testing Test Results Negative Urine Dip Bedside Urine Glucose Negative Bedside Urine Bilirubin - Negative Bedside Urine Ketone - Negative Urine Specific Wilbur 1.025 Bedside Urine Occult Blood - Negative Bedside Urine pH 6.0 Bedside Urine Protein +/- 15 Bedside Urine Urobilinogen - Negative Bedside Urine Nitrite - Negative Bedside Urine Leukocytes +++ 500 Esterase MDM Narrative Medical decision making narrative: Her urinalysis today does have leukocyte esterase but also quite a bit epi cells. Her last visit there was a urine culture that was obtained. Review this does show a bacteria that is sensitive to cephalosporins so I suspect that Keflex would be an appropriate antibiotic for this bacteria. Patient does express that her symptoms are a vaginal discharge not a urinary discharged. She denies most of the UTI questions. Had a long discussion with her regarding her symptoms. We did discuss that potentially this could be a STI versus a yeast infection versus bacterial vaginosis. I did inform her that we would need to do a pelvic exam to further evaluate this. Also stated that we could obtain swabs to evaluate for a yeast versus bacterial vaginosis. Also informed her that we could do a urine GC and chlamydia. Stated that all of this testing she would be here in the emergency department for another hour and a half for the results to return. She states she could not wait that long. States that she has a friend watching her children at home. She stated that she would like to be discharged home and would come back in the morning when she had more time in order to complete the testing. I did order a GC and chlamydia so that if the patient did return in the morning we would have the results of this. They were eventually negative. Informed the patient that she should continue the Keflex until she returns to . She expressed understanding and agreement plan. Discharge Plan Departure Patient Disposition: Home Clinical Impression: Vaginal discharge Discharge Date/Time: 09/18/19 00:01 Activity Restrictions/Additional Instructions: I do recommend that you return to the emergency department in the morning like we discussed for further workup of your presenting symptoms. Until then continue with the current antibiotic regiment. Prescriptions: No Action buprenorphine-naloxone [Suboxone] 8-2 mg film 1 film sublingual DIRECTED RF: 0 cephalexin 500 mg capsule 500 mg PO BID 14 Days Qty: 28 RF: 0 Referrals: Mark Parkinson MD [Primary Care Provider] -
[2019-09-18 01:51] LABS: Urine N gonorrhoeae NOT DETECTED
[2019-09-18 01:54] LABS: Urine Chlamydia NOT DETECTED
== END 2019-09-18 00:01 | disposition home or self-care (01) ==
PROVIDERS: Emergency Provider Emergency Medicine; PCP Family Medicine
DX: N89.8 Other specified noninflammatory disorders of vagina (principal)
CPT/HCPCS: 81003; 81015; 81025; 87086; 87491; 87591; 99282

== ENCOUNTER 2019-09-19 03:38 | Emergency (ER) | payer OTHER, MEDICAID, SELFPAY ==
--- NOTE | 2019-09-19 03:42 | ED.GENADULT ---
HPI - General Adult General Chief complaint: Urogenital-Female Stated complaint: THINKS UTI HAS NOT GONE AWAY Time Seen by Provider: 09/19/19 03:40 Source: patient Mode of arrival: Ambulatory Limitations: no limitations History of Present Illness HPI narrative: 49-year-old female. I evaluated her here in the emergency department approximately 24 hours ago for evaluation of vaginal discharge. Prior to that she was seen here in the emergency department approximately 14 days ago where she was diagnosed with pyelonephritis. She has been on Keflex since then. She states that her symptoms really have not improved however she now describes the symptoms as vaginal discharge. During her last visit here in the ER we had a discussion regarding STI testing. Did discuss the importance of having a pelvic exam to evaluate for other potential issues such as yeast infections versus bacterial vaginosis. During that time patient stated that she could not stay in the emergency department for the time it would take to get the results back secondary to childcare issues. She stated that she would come back in the morning. After she left I did order a urine GC and chlamydia which was subsequently negative. She did not come back the next morning however decided come back at this time. She states that her symptoms have not changed since the last time she was here Related Data Home Medications Medication Instructions Recorded Confirmed buprenorphine-naloxone [Suboxone] 1 film SUBLINGUAL DIRECTED 02/02/19 02/02/19 Previous Rx's Medication Instructions Recorded cephalexin 500 mg PO BID 14 Days #28 cap 08/27/19 metronidazole [Flagyl] 500 mg PO BID 7 Days #13 tab 09/19/19 Allergies Allergy/AdvReac Type Severity Reaction Status Date / Time No Known Drug Allergies Allergy Verified 08/27/19 18:29 Review of Systems Constitutional Constitutional: Denies fever(s) Genitourinary Genitourinary: Denies hematuria, Denies dysuria, Denies pelvic pain and Reports vaginal discharge Musculoskeletal Musculoskeletal: Denies back pain Integumentary/Breasts Skin/Breast: Denies rash Patient History Medical History Heroin use (Acute) Surgical History History of hysterectomy (Acute) Social History Smoking Status: Former smoker substance use type: former substance user, heroin and IV drugs Smoking Status: Former smoker alcohol intake frequency: holidays/special occasions only Substance Use Type: heroin Exam Initial Vital Signs Initial Vital Signs: Vital Signs Temperature 98.2 F 09/19/19 03:43 Const General: cooperative and comfortable Resp Effort & Inspection: normal respiratory effort Cardio Rate: regular rate Neuro General: alert, awake and oriented x3 Cognition: normal cognition Speech: speech normal Extrem General: normal to inspection Course Orders Ordered: Discontinued Medications Metronidazole (Metronidazole) 500 mg PO NOW ONE Stop: 09/19/19 03:48 Last Admin: 09/19/19 03:55 Dose: 500 mg Documented by: LUIS FERNANDO Vital Signs Vital signs: Vital Signs - 8 hr 09/19/19 03:43 09/19/19 03:45 Temperature 98.2 F 98.3 F Pulse Rate 75 Respiratory Rate 20 Blood Pressure [Left Arm] 117/70 Pulse Oximetry 96 Medical Decision Making MDM Narrative Medical decision making narrative: Had a discussion with her regarding her symptoms. I did inform her that the gonorrhea and chlamydia test that was ordered after she left from the emergency department last evening was subsequently negative. Review of the patient's urinalysis from the last time that she was here shows that she did have Trichomonas in her urine. I suspect that this is the cause of her symptoms. I did discuss this with her. I talked with her today about her urinalysis yesterday. I stated that we still could perform a pelvic exam to evaluate further issues such as bacterial vaginosis however the treatment for Trichomonas would treat this as well. Also stated that we you would also be able to check for other issues such as yeast infections however the patient states that she has had yeast infection in the past and this does not feel like that. She denied a offered a pelvic exam today. She was given a 1st dose of metronidazole here in the ER and a prescription for the remainder. She has 1 dose of Keflex left which she will take. She was given return precautions and follow-up instructions. She expressed understanding and agreement. Discharge Plan Departure Patient Disposition: Home Clinical Impression: Trichomoniasis Instructions: DI for Trichomoniasis Activity Restrictions/Additional Instructions: Your 1st dose of metronidazole/Flagyl was given here in the emergency department. Your next dose will be this evening (Saturday). Take it as directed. I do recommend that you complete the course of Keflex. I also recommend that you contact your sexual partner to let him/her know that they should be tested/treated for Trichomonas. Recommend no sexual contact until you complete the course of metronidazole/Flagyl. It would also be richardson to have your primary doctor recheck you after the course of treatment to confirm that the infection has been properly treated. Return to the emergency department for any new or worsening symptoms Prescriptions: New metronidazole [Flagyl] 500 mg tablet 500 mg PO BID 7 Days Qty: 13 RF: 0 No Action buprenorphine-naloxone [Suboxone] 8-2 mg film 1 film sublingual DIRECTED RF: 0 cephalexin 500 mg capsule 500 mg PO BID 14 Days Qty: 28 RF: 0 Referrals: Mark Parkinson MD [Primary Care Provider] -
[2019-09-19 03:43] VITALS: TEMP 36.8
[2019-09-19 03:45] VITALS: BP 117/70; PULSE 75; RESP 20; TEMP 36.8; O2SAT 96
[2019-09-19] MEDS: metroNIDAZOLE 250 MG TABLET 500 MG PO (03:55)
--- NOTE | 2019-09-19 04:04 | PC.NURSE ---
DR Brewster had seen her yesterday for same,the female urogenital exam was deferred to DR Brewster.
== END 2019-09-19 04:10 | disposition home or self-care (01) ==
PROVIDERS: Emergency Provider Emergency Medicine; PCP Family Medicine
DX: A59.01 Trichomonal vulvovaginitis (principal)
CPT/HCPCS: 99283

== ENCOUNTER 2020-06-30 05:20 | Emergency (ER) | payer OTHER, MEDICAID, SELFPAY ==
[2020-06-30 05:29] VITALS: BP 112/65; PULSE 89; RESP 18; TEMP 36.6; O2SAT 100; BMI 23.9
--- NOTE | 2020-06-30 05:46 | ED_ITS ---
HPI - Skin/Abscess/Foreign Bdy <Vance Springer MD - Last Filed: 07/17/20 07:06> General Chief complaint: Skin/Abscess/Foreign Body Stated complaint: ABSCESS ON ARM X2 W Time Seen by Provider: 06/30/20 05:33 Source: patient Mode of arrival: Ambulatory Limitations: no limitations History of Present Illness HPI narrative: Patient here with friend. Complains of abscess to the dorsal surface of the proximal left forearm. Patient admits IV drug use. Patient states never had abscess before. Ongoing for 2 weeks. Related Data Home Medications Medication Instructions Recorded Confirmed buprenorphine-naloxone [Suboxone] 1 film SUBLINGUAL DIRECTED 02/02/19 02/02/19 Previous Rx's Medication Instructions Recorded amoxicillin 500 mg PO BID #14 cap 07/07/20 Allergies Allergy/AdvReac Type Severity Reaction Status Date / Time No Known Drug Allergies Allergy Verified 06/30/20 05:29 Review of Systems <Vance Springer MD - Last Filed: 07/17/20 07:06> Review of Systems Narrative: GENERAL: Denies chills, fatigue, malaise, fever, sweats. HEENT: Denies sinus pain, ear pain, sore throat MUSCULOSKELETAL: Complains muscle or bony pain SKIN: Denies rash, complains skin lesion NEUROLOGIC: Denies weakness, numbness ROS Unobtainable: All systems reviewed & are unremarkable except as noted in HPI and below Patient History <Vance Springer MD - Last Filed: 07/17/20 07:06> Medical History (Updated 07/15/20 @ 00:00 by ) Heroin use Surgical History History of hysterectomy Social History Smoking Status: Current every day smoker substance use type: former substance user, heroin and IV drugs Smoking Status: Current every day smoker alcohol intake frequency: holidays/special occasions only Substance Use Type: heroin Exam <Vance Springer MD - Last Filed: 07/17/20 07:06> Narrative Exam Narrative: GENERAL: in no distress, not toxic not dyspneic HEAD: Normocephalic. EXTREMITIES: Examination left upper extremity. There is extensive proximal edema of the left forearm. Circumferential. There is a very large abscess at the dorsal surface of the forearm. Hand is warm soft pink with strong radial pulse light touch intact to fingers and thumb. NEURO: AOx4. SKIN: Warm and dry PSYCH: Not anxious, is cooperative Initial Vital Signs Initial Vital Signs: Vital Signs Temperature 98 F 06/30/20 05:29 Pulse Rate 89 06/30/20 05:29 Respiratory Rate 18 06/30/20 05:29 Blood Pressure 112/65 06/30/20 05:29 Pulse Oximetry 100 06/30/20 05:29 <Shannan Woods DO - Last Filed: 06/30/20 08:59> Initial Vital Signs Initial Vital Signs: Vital Signs Temperature 98 F 06/30/20 05:29 Pulse Rate 89 06/30/20 05:29 Respiratory Rate 18 06/30/20 05:29 Blood Pressure 112/65 06/30/20 05:29 Pulse Oximetry 100 06/30/20 05:29 Course <Vance Springer MD - Last Filed: 07/17/20 07:06> Course Course Narrative: Time 7:00 a.m.. s/o dr woods, awaiting for PICC team to arrive. Patient will need IV antibiotics and admission. CT of forearm pending. IV antibiotics will be needed to be ordered after PICC placement Orders Ordered: Discontinued Medications Sodium Chloride (Normal Saline 0.9%) 500 mls @ 1,000 mls/hr IV BOLUS ONE Stop: 06/30/20 06:12 Vital Signs Vital signs: Vital Signs - 8 hr 06/30/20 05:29 Temperature 98 F Pulse Rate 89 Respiratory Rate 18 Blood Pressure 112/65 Pulse Oximetry 100 <Shannan Woods DO - Last Filed: 06/30/20 08:59> Orders Ordered: Discontinued Medications Sodium Chloride (Normal Saline 0.9%) 500 mls @ 1,000 mls/hr IV BOLUS ONE Stop: 06/30/20 06:12 Vital Signs Vital signs: Vital Signs - 8 hr 06/30/20 05:29 Temperature 98 F Pulse Rate 89 Respiratory Rate 18 Blood Pressure 112/65 Pulse Oximetry 100 MDM - Skin/Abscess/Foreign Bdy <Vance Springer MD - Last Filed: 07/17/20 07:06> Lab Data Labs: Lab Results 06/30/20 Range/Units 07:27 SARS-CoV-2 (PCR) Negative (Negative) <Shannan Woods, DO - Last Filed: 06/30/20 08:59> Lab Data Labs: Lab Results 06/30/20 Range/Units 07:27 SARS-CoV-2 (PCR) Negative (Negative) MDM Narrative Medical decision making narrative: I received sign-out from Dr. munoz seen evaluated patient myself. She is awake alert and appropriate she has large abscess on her left forearm. Her forearm is typed she has good strong radial pulse and moving her fingers easily. She has significant history of IVDA and does not have anything available. Awaiting for the PICC line. Concern for for for drainage. A DI NURSE ATTEMPTED TO TIMES TO PLACE IV. PATIENT WAS NOT TOLERATING THE IV PLACEMENT. A NURSE WAS IN THERE TO HELP OF ULNAR HAND AND WALKER THROUGH THE PROCESS and she still did not tolerate it. I offered to drain the abscess at bedside which she refused. I have discussed with her possibility of sepsis, compartment syndrome and . At this time she is refusing treatment but is agreeable to take antibiotics. She understands all of this and is still wanting to leave against medical advice The patient is clinically sober, free from distracting injury, appears to have intact insight, judgment and reason. Does not meet criteria for involuntary hospitalization. Patient has the capacity to make decisions. Discharge Plan Departure Patient Disposition: Left Against Medical Advice Clinical Impression: Abscess of arm, left Instructions: DI for Skin Abscess Activity Restrictions/Additional Instructions: You are leaving against medical advice It is strongly recommended that your abscess be opened and drained to fully get the infection out. It is possible that you have bacteria in her bloodstream which can cause serious problems and even lead to . The swelling in the arm can also lead to some nerve damage in your forearm and hand. Please keep your arm elevated as often as possible to help decrease the swelling Please fill and take your antibiotics as prescribed Bactrim 1 tablet twice a day for 10 days-->SENT TO [facility] Return to the emergency department if you should have fever weakness confusion, worsening redness inability to move fingers Prescriptions: No Action buprenorphine-naloxone [Suboxone] 8-2 mg film 1 film sublingual DIRECTED RF: 0 amoxicillin 500 mg capsule 500 mg PO BID Qty: 14 RF: 0 Referrals: Mark Parkinson MD [Primary Care Provider] - Stand Alone Forms: Against Medical Advice
[2020-06-30 07:48] LABS: COVID19 -Nasal RAPID Negative (Negative)
--- NOTE | 2020-06-30 07:55 | PC.NURSE ---
pt refused iv attempt from RN, KYA RN in room, pt refused. said she is scared. i explained the importance and informed dr. woods.
--- NOTE | 2020-06-30 08:24 | PC.NURSE ---
Pt was coached and educated on the importance of the need for venous access. Pt agreed to try the PICC line placement again. When LEN Staton went to inject the numbing medication the patient leaped off of the stretcher yelling fuck this. I'm not having surgery. I don't want it to hurt. I'm going home. No amount of reassuring was successful in getting her to stay. MD went in and tried to reason and educate the pt but was also unsuccessful. Pt leaving AMA. Pt was given a thorough d/c education packet and her antibiotics were sent to [facility].
== END 2020-06-30 08:25 | disposition left against medical advice (07) ==
PROVIDERS: Emergency Provider Emergency Medicine; PCP Family Medicine
DX: L02.414 Cutaneous abscess of left upper limb (principal); Z20.822 Contact with and (suspected) exposure to COVID-19
CPT/HCPCS: 87040; 87635; 99281; 99282; C9803

== ENCOUNTER 2020-07-07 22:02 | Emergency (ER) | payer OTHER, MEDICAID, SELFPAY ==
[2020-07-07 22:09] VITALS: BP 136/79; PULSE 115; RESP 24; TEMP 37.2; O2SAT 99; BMI 20.9
[2020-07-07 22:27] VITALS: PULSE 100
[2020-07-07 22:38] VITALS: PULSE 98
--- NOTE | 2020-07-07 22:58 | ED.DENTAL ---
HPI - Dental/Oral General Chief complaint: Dental/Oral Stated complaint: rt sided ear and jaw pain Time Seen by Provider: 07/07/20 22:50 Source: patient Mode of arrival: Ambulatory Limitations: no limitations History of Present Illness HPI Narrative: Patient is a 50-year-old female known IV DA who presents today with right ear pain on going for about 3 weeks. She states that she was diagnosed with an ear infection 3 weeks ago started on antibiotic she said the pain got better she finished the antibiotics and over the last 3 days she says the pain has gotten worse. She does have known tooth problem and she has an appointment with a dentist in a few days she can not tell if it is her ear or her tooth but the pain seems to be worsening. She denies fever or chills. She was actually seen here last week for left arm abscess she was put on Bactrim. She states that she went home and lanced it herself started the antibiotics neck has improved. Related Data Home Medications Medication Instructions Recorded Confirmed buprenorphine-naloxone [Suboxone] 1 film SUBLINGUAL DIRECTED 02/02/19 02/02/19 Previous Rx's Medication Instructions Recorded sulfamethoxazole-trimethoprim 1 tab PO BID 10 Days #20 tab 06/30/20 [Bactrim DS] amoxicillin 500 mg PO BID #14 cap 07/07/20 Allergies Allergy/AdvReac Type Severity Reaction Status Date / Time No Known Drug Allergies Allergy Verified 06/30/20 05:29 Review of Systems Review of Systems Narrative: GENERAL: Denies chills,fever HEENT: See HPI RESPIRATORY: Denies dyspnea, cough, wheezing CARDIOVASCULAR: Denies chest pain, palpitations GASTROINTESTINAL: Denies nausea, vomiting MUSCULOSKELETAL: Denies extremity pain, injury SKIN: No rash, no laceration, no pruritus NEUROLOGIC: Denies weakness, dizziness, headache, numbness 8 point review of systems is negative except for those stated above and HPI Patient History Medical History (Updated 07/07/20 @ 23:03 by Shannan Bucio DO) Heroin use Surgical History History of hysterectomy Social History Smoking Status: Current every day smoker substance use type: former substance user, heroin and IV drugs Smoking Status: Current every day smoker alcohol intake frequency: holidays/special occasions only Substance Use Type: heroin Exam Initial Vital Signs Initial Vital Signs: Vital Signs Temperature 98.9 F 07/07/20 22:09 Pulse Rate 115 H 07/07/20 22:09 Respiratory Rate 24 07/07/20 22:09 Blood Pressure 136/79 07/07/20 22:09 Pulse Oximetry 99 07/07/20 22:09 GENERAL: Well-appearing, well-nourished and in no acute distress. CARDIOVASCULAR: peripheral pulses in tact, cap refill <2 sec RESPIRATORY: No respiratory distress, speaks in full sentences without difficulty [ABDOMEN: Soft, nontender, no guarding or rebound] EXTREMITIES: Normal range of motion, no clubbing or edema. Neurovascularly intact NEUROLOGICAL: Cranial nerves II through XII grossly intact. Normal gait and speech. SKIN: Warm, dry, no petechiae, no rashes or lesions. HENMT Ears: external ears normal and TM's normal bilaterally Teeth and gingiva: caries (And no dental abscess) and poor dentition Course Orders Ordered: Discontinued Medications Amoxicillin (Amoxicillin 250 Mg Prepack) 1 bottle MISC SEEINSTR ONE Stop: 07/07/20 23:04 Last Admin: 07/07/20 23:09 Dose: 1 bottle Documented by: DUNIA Vital Signs Vital signs: Vital Signs - 8 hr 07/07/20 22:09 07/07/20 22:27 07/07/20 22:38 Temperature 98.9 F Pulse Rate 115 H 100 H 98 H Respiratory Rate 24 Blood Pressure 136/79 Pulse Oximetry 99 07/07/20 23:11 Temperature Pulse Rate 99 H Respiratory Rate 22 Blood Pressure 125/87 Pulse Oximetry 99 Discharge Plan Departure Patient Disposition: Home Clinical Impression: Pain, dental, Acute ear pain Instructions: DI for Dental Pain Activity Restrictions/Additional Instructions: *You have been diagnosed with dental pain *What to do: At this time I think her ear pain is related to your dental issue. Will restart antibiotics for you it should help both *Continue to take medications as directed Amoxicillin 500 mg twice a day for 7 days-->SENT TO [facility] IN [place] *Follow up with your primary care provider in 2-3 days *Return to ER if you should have any new, worsening or concerning symptoms Prescriptions: New amoxicillin 500 mg capsule 500 mg PO BID Qty: 14 RF: 0 No Action buprenorphine-naloxone [Suboxone] 8-2 mg film 1 film sublingual DIRECTED RF: 0 sulfamethoxazole-trimethoprim [Bactrim DS] 800-160 mg tablet 1 tab PO BID 10 Days Qty: 20 RF: 0 Referrals: Mark Parkinson MD [Primary Care Provider] -
[2020-07-07] MEDS: AMOXICILLIN 250 MG PREPACK 1 BOTTLE MISC (23:09)
[2020-07-07 23:11] VITALS: BP 125/87; PULSE 99; RESP 22; O2SAT 99
== END 2020-07-07 23:11 | disposition home or self-care (01) ==
PROVIDERS: Emergency Provider Emergency Medicine; PCP Family Medicine
DX: K08.89 Other specified disorders of teeth and supporting structures (principal); H92.01 Otalgia, right ear
CPT/HCPCS: 99281; 99283

== ENCOUNTER 2021-10-05 02:55 | Emergency (ER) | payer OTHER, MEDICAID, SELFPAY ==
[2021-10-05 03:05] VITALS: BP 107/59; PULSE 102; RESP 18; TEMP 36.6; O2SAT 98
--- NOTE | 2021-10-05 05:09 | ED_ITS ---
HPI - URI/Sore Throat General Chief Complaint: Upper Respiratory Symptoms Stated Complaint: SORE THROAT LYMPNODES SWOLLEN Time Seen by Provider: 10/05/21 05:09 Source: patient Mode of arrival: Ambulatory Limitations: no limitations History of Present Illness HPI Narrative: This is a 51-year-old female who comes emergency department with complaint of sore throat and swollen lymph nodes in the neck. Patient denies fevers. She has had some runny nose, she describes cough, nonproductive. Denies chest pain or shortness of breath. No stridor. No difficulty swallowing secretions. Patient has not had any nausea or vomiting. She does know a rash on her groin and left upper extremity. Patient states she does inject her arms. Patient denies any daily medications. She denies allergies to drugs. Related Data Home Medications Medication Instructions Recorded Confirmed buprenorphine 8 mg-naloxone 2 mg 1 film SUBLINGUAL DIRECTED 02/02/19 02/02/19 sublingual film (Suboxone) Previous Rx's Medication Instructions Recorded amoxicillin 500 mg capsule 500 mg PO BID #14 cap 07/07/20 amoxicillin 500 mg tablet 500 mg PO TID #30 tab 10/05/21 Allergies Allergy/AdvReac Type Severity Reaction Status Date / Time No Known Drug Allergies Allergy Verified 06/30/20 05:29 Review of Systems Review of Systems ROS Unobtainable: All systems reviewed & are unremarkable except as noted in HPI and below Patient History Medical History Heroin use Surgical History History of hysterectomy Social History Smoking Status: Current every day smoker substance use type: former substance user, heroin and IV drugs Smoking Status: Current every day smoker alcohol intake frequency: holidays/special occasions only Substance Use Type: heroin Exam Narrative Exam Narrative: GEN: Female appearing older than stated age, female, alert and oriented x 3, patient appears to be in mild distress. HEENT: Atraumatic, pupils are equal round reactive to light, extraocular movements are intact, nares are clear, TMs are clear with no fluid. Throat is clear without any exudates, positive for erythema, bilateral tonsillar enlargement without uvular deviation, patient has bilateral submandibular lymphadenopathy. Normal speech. No stridor. HEART: Regular rate and rhythm without murmur, clicks, rubs. LUNGS:Lungs clear to auscultation, no wheezes, rales, crackles, chest moves symmetrically ABD:bowel sounds normal, soft, non-tender, no guarding, rebound, rigidity, no masses noted, no hepatosplenomegaly :No CVA tenderness MSCL: Patient has and tenderness with induration over the right forearm this proximally 2 cm in size. There is some slight warmth no erythema appreciated. 5/5 upper and lower extremities, full range of motion, normal gait NEURO:CN 2-12 intact, sensation normal SKIN: See above, patient also has several small areas of ingrown hairs in the right groin without any erythema but slight swelling. Initial Vital Signs Initial Vital Signs: Vital Signs Temperature 98 F 10/05/21 03:05 Pulse Rate 102 H 10/05/21 03:05 Respiratory Rate 18 10/05/21 03:05 Blood Pressure 107/59 L 10/05/21 03:05 Pulse Oximetry 98 10/05/21 03:05 Course Orders Ordered: Discontinued Medications Amoxicillin (Amoxicillin 250 Mg Capsule) 500 mg PO NOW ONE Stop: 10/05/21 05:19 Last Admin: 10/05/21 05:52 Dose: 500 mg Documented by: [email or web address] Vital Signs Vital signs: Vital Signs - 8 hr 10/05/21 03:05 Temperature 98 F Pulse Rate 102 H Respiratory Rate 18 Blood Pressure 107/59 L Pulse Oximetry 98 MDM - URI/Sore Throat Lab Data Labs: Point of Care Testing Rapid Strep A Positive [facility] Narrative Medical decision making narrative: This is a 51-year-old female for group a strep. Patient started amoxicillin. She is noted to have some ingrown hairs that do not look infected in the groin on exam when she complains of rash but also noted to have what appears to be an abscess on her left upper extremity. Patient and I discussed incision and drainage, she does inject into her upper extremities. Patient defers, she plans for warm compresses we did discuss this will likely continue to worsen but she does not wish to have I and D at this time. We discussed return precautions and patient expressed her understanding. We also discussed that amoxicillin may not cover her for her skin infection. Discharge Plan Departure Patient Disposition: Home Clinical Impression: Acute streptococcal pharyngitis Instructions: DI for Strep Throat Activity Restrictions/Additional Instructions: Follow-up with your physician recheck if your symptoms do not resolve. Take antibiotics until completely gone. Prescription sent to [facility] Please return for fevers, rapidly worsening swelling, inability this well your saliva or secretions, stridor or high-pitched wheezing, persistent vomiting, swelling of your face or neck or other new or concerning symptoms. Prescriptions: New amoxicillin 500 mg tablet 500 mg PO TID Qty: 30 0RF No Action buprenorphine-naloxone [Suboxone] 8-2 mg film 1 film sublingual DIRECTED 0RF Label Comments: patient states took today but vomited after 02/02/19 amoxicillin 500 mg capsule 500 mg PO BID Qty: 14 0RF Referrals: Mark Parkinson MD [Primary Care Provider] -
[2021-10-05] MEDS: AMOXICILLIN 250 MG CAPSULE 500 MG PO (05:52)
[2021-10-05 05:53] VITALS: RESP 15
== END 2021-10-05 05:55 | disposition home or self-care (01) ==
PROVIDERS: Emergency Provider Emergency Medicine; PCP Family Medicine
DX: J02.0 Streptococcal pharyngitis (principal)
CPT/HCPCS: 87880; 99283

== ENCOUNTER 2022-08-17 17:27 | Emergency (ER) | payer OTHER, MEDICAID, SELFPAY ==
[2022-08-17 17:30] VITALS: BP 121/64; PULSE 87; RESP 18; TEMP 36.2; O2SAT 99; BMI 21.2
--- NOTE | 2022-08-17 18:18 | ED.GENADULT ---
HPI - General Adult General Chief complaint: Abdominal Pain Stated complaint: c/o General Unwell/ fever Time Seen by Provider: 08/17/22 18:05 Source: patient and EMS Mode of arrival: EMS History of Present Illness HPI narrative: 52-year-old female daily smoker admits to smoking PERC 30s relatively regularly presents with a chief complaint of waking from a nap and feeling flushed and feeling profoundly nauseated. She states she vomited multiple times prior to her arrival and is otherwise well. She denies any dizziness, weakness or lightheadedness. She is had no headaches, blurred vision or trouble with speech. She denies any chest pain or shortness of breath. She denies abdominal pain, diarrhea or dysuria, frequency or urgency. She denies any recent trauma or injury. She denies exposure to ill persons. Related Data Home Medications Medication Instructions Recorded Confirmed buprenorphine 8 mg-naloxone 2 mg 1 film sublingual DIRECTED 02/02/19 02/02/19 sublingual film (Suboxone) Previous Rx's Medication Instructions Recorded ondansetron 4 mg disintegrating 4 mg PO TID-QID PRN nausea and 08/17/22 tablet vomiting #10 tabs pantoprazole 40 mg tablet,delayed 40 mg PO DAILY #30 tabs 08/17/22 release (Protonix) Allergies Allergy/AdvReac Type Severity Reaction Status Date / Time No Known Drug Allergies Allergy Verified 08/17/22 17:36 Review of Systems Review of Systems Narrative: GENERAL: Denies chills, fatigue, malaise, fever, sweats. HEENT: Denies sinus pain, ear pain, sore throat, difficulty swallowing, dizziness. RESPIRATORY: Denies dyspnea, cough, wheezing, hemoptysis, sputum. CARDIOVASCULAR: Denies chest pain, palpitations, orthopnea, edema, GASTROINTESTINAL: See HPI : Denies dysuria, frequency, incontinence, hematuria, urinary retention. MUSCULOSKELETAL: denies weakness, joint pain, or bony pain SKIN: Denies rash, skin lesions, or other NEUROLOGIC: Denies weakness, headache, numbness, change in speech, confusion, seizures, incoordination. PSYCHIATRIC: No concerning psychosocial issues. 12 point review of systems is negative except for those stated above Patient History Medical History Heroin use Surgical History History of hysterectomy Social History Smoking Status: Current every day smoker substance use type: former substance user, heroin and IV drugs Smoking Status: Current every day smoker alcohol intake frequency: holidays/special occasions only Substance Use Type: heroin Exam Narrative Exam Narrative: GENERAL: [52] year old patient appears stated age. Well-developed patient, in mild distress. A&O x3, GCS 15, speaking clearly HEAD: Atraumatic. Normocephalic. EYES: Pupils equal round and reactive. Extraocular motions intact. No scleral icterus. No injection or drainage. ENT: Nose without bleeding, purulent drainage. Throat without erythema, tonsillar hypertrophy or exudate. Airway patent. NECK: Trachea midline. Non tender CARDIOVASCULAR: Regular rate and rhythm without murmurs, gallops, or rubs. RESPIRATORY: Clear to auscultation. Breath sounds equal bilaterally. No wheezes, rales, or rhonchi. GASTROINTESTINAL: Abdomen soft, non-tender, nondistended. EXTREMITIES: No edema or joint tenderness. BACK: Nontender without deformity or crepitance. No flank tenderness. NEURO: AOx3. SKIN: No rash or erythema of visible areas Initial Vital Signs Initial Vital Signs: Vital Signs Temperature 97.1 F L 08/17/22 17:30 Pulse Rate 87 08/17/22 17:30 Respiratory Rate 18 08/17/22 17:30 Blood Pressure 121/64 08/17/22 17:30 Pulse Oximetry 99 08/17/22 17:30 Oxygen Delivery Method Room Air 08/17/22 17:30 Course Orders Ordered: ED Orders 08/17/22 19:13 Complete Blood Count AUTO DIFF Stat Comprehensive Metabolic Panel Stat Lactate (Lactic Acid) Stat Lipase Stat Procalcitonin Stat 08/17/22 21:26 Urine Drug Screen, Rapid Stat 08/17/22 21:50 CBC Auto Diff [Complete Blood Count AUTO DIFF] Stat Discontinued Medications Lactated Ringer's (Lactated Ringers) 1,000 mls @ 1,000 mls/hr IV BOLUS ONE Stop: 08/17/22 20:51 Last Infusion: 08/17/22 20:53 Dose: 0 mls/hr Documented By: Admin: 08/17/22 19:55 Dose: 1,000 mls/hr Documented By: BISHOP Lactated Ringer's (Lactated Ringers) 1,000 mls @ 1,000 mls/hr IV BOLUS ONE Stop: 08/17/22 22:13 Last Infusion: 08/17/22 22:33 Dose: 0 mls/hr Documented By: Admin: 08/17/22 21:15 Dose: 1,000 mls/hr Documented By: BISHOP Ondansetron HCl (Ondansetron 4 Mg Odt) 4 mg PO NOW PRN PRN Reason: Nausea And Vomiting Ondansetron HCl (Ondansetron 4 Mg/2 Ml Inj) 4 mg IV NOW PRN PRN Reason: Nausea And Vomiting Ondansetron HCl (Ondansetron 4 Mg Odt Prepack) 1 bottle MISC SEEINSTR ONE Stop: 08/17/22 22:08 Last Admin: 08/17/22 22:46 Dose: 1 bottle Documented By: ILSA Pantoprazole Sodium (Pantoprazole 40 Mg Vial) 40 mg IV NOW ONE Stop: 08/17/22 20:01 Last Admin: 08/17/22 20:33 Dose: 40 mg Documented By: BISHOP Reevaluation(s) Reevaluation #1: Patient with significant improvement after above-stated therapies, requesting discharge Vital Signs Vital signs: Vital Signs - 8 hr 08/17/22 22:52 Temperature 98 F Pulse Rate 71 Respiratory Rate 16 Blood Pressure 122/84 Pulse Oximetry 100 Oxygen Delivery Method Room Air Medical Decision Making Lab Data 08/17/22 21:50 08/17/22 19:13 Labs: Lab Results 08/17/22 08/17/22 08/17/22 Range/Units 19:13 19:13 19:13 WBC 20.3 H (4.5-11.0) X10^3/uL RBC 4.72 (4.0-5.2) X10^6/uL Hgb 14.3 (12.0-16.0) g/dL Hct 42.9 (36-46) % MCV 90.9 (80-100) fL MCH 30.4 (26-34) PG MCHC 33.4 (30-36) % RDW 12.7 (11.6-14.8) % Plt Count 284 (150-400) X10^3/uL Neut % (Auto) 88.3 H (50-75) % Lymph % (Auto) 5.0 L (25-40) % [place] % (Auto) 6.3 (3-14) % Eos % (Auto) 0.2 L (2-4) % Baso % (Auto) 0.2 (0-2) % Neut # (Auto) 54845 H (0439-0733) /uL Lymph # (Auto) 1000 L (4566-4403) /uL [place] # (Auto) 1300 H (0-900) /uL Eos # (Auto) 0 (0-450) /uL Baso # (Auto) 0 (0-100) /uL Total Counted Seg Neutrophils % (38-70) % Lymphocytes % (Manual) (25-45) % Monocytes % (Manual) (2-11) % Eosinophils % (Manual) (2-4) % Neutrophils # (Manual) (6296-2187) /uL RBC Morphology Sodium 137 (137-145) mmol/L Potassium 4.0 (3.4-5.1) mmol/L Chloride 102 (98-107) mmol/L Carbon Dioxide 28 (22-32) mmol/L BUN 17 (7-17) mg/dL Creatinine 0.64 (0.52-1.04) mg/dL Estimated GFR > 60 (>60) mL/min BUN/Creatinine Ratio 26.6 H (6-22) Glucose 103 H (70-100) mg/dL Lactate 1.5 (0.7-2.1) mmol/L Calcium 9.1 (8.4-10.2) mg/dL Total Bilirubin 0.5 (0.2-1.3) mg/dL AST 21 (14-36) IU/L ALT 18 (<35) IU/L Alkaline Phosphatase 88 (38-126) U/L Total Protein 7.8 (6.3-8.2) g/dL Albumin 4.3 (3.5-5.0) g/dL Globulin 3.5 (1.7-4.1) g/dL Albumin/Globulin Ratio 1.2 (1.0-2.8) Lipase 39 (23-300) U/L Procalcitonin (<0.5) ng/mL U Opiates 300ng/mL cut (Negative) Ur Oxycodone Screen (Negative) Urine Methadone Screen (Negative) Ur Barbiturates Screen (Negative) U Tricyclic Antidepress (Negative) Ur Phencyclidine Scrn (Negative) Ur Amphetamines Screen (Negative) U Methamphetamines Scrn (Negative) Ur MDMA Scrn (Ecstasy) (Negative) U Benzodiazepines Scrn (Negative) Urine Cocaine Screen (Negative) U Marijuana (THC) Screen (Negative) 08/17/22 08/17/22 08/17/22 Range/Units 19:13 21:26 21:50 WBC 15.9 H (4.5-11.0) X10^3/uL RBC 3.92 L (4.0-5.2) X10^6/uL Hgb 12.1 (12.0-16.0) g/dL Hct 35.3 L (36-46) % MCV 90.1 (80-100) fL MCH 30.9 (26-34) PG MCHC 34.3 (30-36) % RDW 12.8 (11.6-14.8) % Plt Count 216 (150-400) X10^3/uL Neut % (Auto) Not Reportable (50-75) % Lymph % (Auto) Not Reportable (25-40) % [place] % (Auto) Not Reportable (3-14) % Eos % (Auto) Not Reportable (2-4) % Baso % (Auto) Not Reportable (0-2) % Neut # (Auto) (1829-7295) /uL Lymph # (Auto) Not Reportable (3485-3894) /uL [place] # (Auto) Not Reportable (0-900) /uL Eos # (Auto) (0-450) /uL Baso # (Auto) Not Reportable (0-100) /uL Total Counted 100 Seg Neutrophils % 88.0 H (38-70) % Lymphocytes % (Manual) 8.0 L (25-45) % Monocytes % (Manual) 3.0 (2-11) % Eosinophils % (Manual) 1.0 L (2-4) % Neutrophils # (Manual) 32959 H (1399-7264) /uL RBC Morphology Normal morphology Sodium (137-145) mmol/L Potassium (3.4-5.1) mmol/L Chloride (98-107) mmol/L Carbon Dioxide (22-32) mmol/L BUN (7-17) mg/dL Creatinine (0.52-1.04) mg/dL Estimated GFR (>60) mL/min BUN/Creatinine Ratio (6-22) Glucose (70-100) mg/dL Lactate (0.7-2.1) mmol/L Calcium (8.4-10.2) mg/dL Total Bilirubin (0.2-1.3) mg/dL AST (14-36) IU/L ALT (<35) IU/L Alkaline Phosphatase (38-126) U/L Total Protein (6.3-8.2) g/dL Albumin (3.5-5.0) g/dL Globulin (1.7-4.1) g/dL Albumin/Globulin Ratio (1.0-2.8) Lipase (23-300) U/L Procalcitonin 0.04 (<0.5) ng/mL U Opiates 300ng/mL cut Negative (Negative) Ur Oxycodone Screen Negative (Negative) Urine Methadone Screen Negative (Negative) Ur Barbiturates Screen Negative (Negative) U Tricyclic Antidepress Negative (Negative) Ur Phencyclidine Scrn Negative (Negative) Ur Amphetamines Screen Positive H (Negative) U Methamphetamines Scrn Positive H (Negative) Ur MDMA Scrn (Ecstasy) Positive H (Negative) U Benzodiazepines Scrn Positive H (Negative) Urine Cocaine Screen Negative (Negative) U Marijuana (THC) Screen Negative (Negative) Urine Dip Bedside Urine Glucose Negative Bedside Urine Bilirubin - Negative Bedside Urine Ketone +/- 5 Urine Specific [place] 1.015 Bedside Urine Occult Blood - Negative Bedside Urine pH 6.0 Bedside Urine Protein - Negative Bedside Urine Urobilinogen - Negative Bedside Urine Nitrite - Negative Bedside Urine Leukocytes - Negative Esterase Point of care testing: Urine Dip Bedside Urine Glucose Negative Bedside Urine Bilirubin - Negative Bedside Urine Ketone +/- 5 Urine Specific [place] 1.015 Bedside Urine Occult Blood - Negative Bedside Urine pH 6.0 Bedside Urine Protein - Negative Bedside Urine Urobilinogen - Negative Bedside Urine Nitrite - Negative Bedside Urine Leukocytes - Negative Esterase [facility] Narrative Medical decision making narrative: [52] year old patient presents with vomiting Multiple etiologies for patient's symptoms considered including, but not limited to: [Flu, COVID, bowel obstruction, pneumonia, drug reaction versus other] Prior Charts reviewed in our EMR Primary Historian: patient Labs reviewed and interpreted by myself: Initial leukocytosis proves tremendously after fluids, no fever, normal lactate and procalcitonin, infectious source thought unlikely, more likely stress response. Multiple abnormal findings in urine drug screen, otherwise labs largely reassuring without any specific findings Patient's symptoms improved over duration of stay with above-stated therapies. Findings and discharge diagnosis discussed with patient/family followed by verbalization of understanding Return precautions discussed with patient/family whom verbalize understanding of diagnosis and plan Discharge Plan Departure Patient Disposition: Home Clinical Impression: Vomiting Instructions: DI for Vomiting -- Adult Activity Restrictions/Additional Instructions: *You have been diagnosed with [vomiting * As we discussed your history and physical exam as well as labs and imaging are very reassuring. There is no evidence of any severe diagnoses that would require a specific or immediate intervention. *What to do: *Please continue to take your regular medications as directed. [x ] New medication prescriptions sent to your pharmacy: [[facility] ] *Please follow up with your primary care provider in 2-3 days, call for an appointment. Let them know you were seen in the Emergency Department and that we ask that you be seen in follow up. We will electronically transmit a record of today's note if your PCP is in our system *Please consider a clear liquid diet for the next 24-48 hours and then slowly advance to regular as tolerated. Also, try to avoid alcohol, nicotine, caffeine, spicy, acidic or fatty foods as this may worsen your symptoms *If you do not have a primary care provider please contact the [facility] Resource line at [phone]. They will ask some questions about your medical history and help get you set up with a doctor in the community. *Return to Emergency Department if you should have any new, worsening or concerning symptoms, such as [fever greater than 101 F, shaking chills, worsening pain, persistent vomiting or other bothersome symptoms] Prescriptions: New pantoprazole [Protonix] 40 mg tablet,delayed release (DR/EC) 40 mg PO DAILY Qty: 30 0RF ondansetron 4 mg tablet,disintegrating 4 mg PO TID-QID PRN (Reason: nausea and vomiting) Qty: 10 0RF No Action buprenorphine-naloxone [Suboxone] 8-2 mg film 1 film sublingual DIRECTED Referrals: Mark Parkinson MD [Non-Staff] - Stand Alone Forms: Patient Portal/API
[2022-08-17 19:21] LABS: Add Manual Diff / Slide Review NO; Basophils Absolute Auto 0 /uL (0-100); Basophils Percent Auto 0.2 % (0-2); Eosinophils Absolute Auto 0 /uL (0-450); Eosinophils Percent Auto 0.2 % (2-4); Hematocrit 42.9 % (36-46); Hemoglobin 14.3 g/dL (12.0-16.0); Lymphocytes Absolute Auto 1000 /uL (1100-4500); Mean Corpuscular HGB Conc 33.4 % (30-36); Mean Corpuscular Hemoglobin 30.4 PG (26-34); Mean Corpuscular Volume 90.9 fL (80-100); Monocytes Absolute Auto 1300 /uL (0-900); Monocytes Percent Auto 6.3 % (3-14); Neutrophils Absolute Auto 17900 /uL (1500-7000); Neutrophils Percent Auto 88.3 % (50-75); Platelet Count 284 X10^3/uL (150-400); Red Blood Cell Count 4.72 X10^6/uL (4.0-5.2); Red Cell Distribution Width 12.7 % (11.6-14.8); White Blood Cell Count 20.3 X10^3/uL (4.5-11.0)
[2022-08-17 19:54] LABS: Lactate (Lactic Acid) 1.5 mmol/L (0.7-2.1)
[2022-08-17 19:55] LABS: Alanine Aminotransferase 18 IU/L (<35); Albumin 4.3 g/dL (3.5-5.0); Albumin Globulin Ratio 1.2 (1.0-2.8); Alkaline Phosphatase 88 U/L (38-126); Aspartate Aminotransferase 21 IU/L (14-36); BUN Creatinine Ratio 26.6 (6-22); Bilirubin Total 0.5 mg/dL (0.2-1.3); Blood Urea Nitrogen 17 mg/dL (7-17); Calcium 9.1 mg/dL (8.4-10.2); Carbon Dioxide 28 mmol/L (22-32); Chloride 102 mmol/L (98-107); Estimated Glomerular Filt Rate > 60 mL/min (>60); Globulin 3.5 g/dL (1.7-4.1); Glucose 103 mg/dL (70-100); HEMOLYSIS 16 (0-50); Lipase 39 U/L (23-300); Sodium 137 mmol/L (137-145); Total Protein 7.8 g/dL (6.3-8.2)
[2022-08-17] MEDS: LACTATED RINGERS 1,000 ML 1000 ML IV ×2 (19:55→21:15)
[2022-08-17] MEDS: PANTOPRAZOLE 40 MG VIAL IV (20:33)
[2022-08-17 21:45] LABS: Procalcitonin 0.04 ng/mL (<0.5)
[2022-08-17 21:50] LABS: UR Morphine/Opiate cutoff 300 Negative (Negative); Ur Creatinine 20 (Normal); Ur Specific Gravity 1.025 (Normal); Urine Amphetamines Positive (Negative); Urine Cocaine Negative (Negative); Urine Methamphetamines Positive (Negative); Urine Tetrahydrocannabinol Negative (Negative); Urine pH 5 (Normal)
[2022-08-17 21:51] LABS: Urine Barbiturates Negative (Negative); Urine Benzodiazepines Positive (Negative); Urine MDMA Positive (Negative); Urine Methadone Negative (Negative); Urine Oxycodone Negative (Negative); Urine Phencyclidine Negative (Negative); Urine Tricyclic Antidepressant Negative (Negative)
[2022-08-17 22:15] LABS: Add Manual Diff / Slide Review YES; Hematocrit 35.3 % (36-46); Hemoglobin 12.1 g/dL (12.0-16.0); Mean Corpuscular HGB Conc 34.3 % (30-36); Mean Corpuscular Hemoglobin 30.9 PG (26-34); Mean Corpuscular Volume 90.1 fL (80-100); Platelet Count 216 X10^3/uL (150-400); Red Blood Cell Count 3.92 X10^6/uL (4.0-5.2); Red Cell Distribution Width 12.8 % (11.6-14.8); White Blood Cell Count 15.9 X10^3/uL (4.5-11.0)
[2022-08-17] MEDS: ONDANSETRON 4 MG ODT PREPACK 1 BOTTLE MISC (22:46)
[2022-08-17 22:52] VITALS: BP 122/84; PULSE 71; RESP 16; TEMP 36.6; O2SAT 100
[2022-08-17 23:40] LABS: Neutrophils Absolute Manual 13992 /uL (3000-5900); RBC Morphology Normal Morphology; Total Cells Counted 100
== END 2022-08-17 22:54 | disposition home or self-care (01) ==
PROVIDERS: Emergency Medicine; Emergency Provider Emergency Medicine
DX: R11.2 Nausea with vomiting, unspecified (principal)
CPT/HCPCS: 36415; 80053; 80305; 81003; 83605; 83690; 84145; 85007; 85025; 96361; 96374; 99284; C9113

== ENCOUNTER 2024-09-29 20:10 | Emergency (ER) | payer OTHER, SELFPAY ==
[2024-09-29 20:15] VITALS: BP 148/69; PULSE 104; RESP 26; TEMP 37; O2SAT 98; BMI 28.3
--- NOTE | 2024-09-29 20:55 | ED.SOB ---
HPI - SOB/Dyspnea General Chief Complaint: Shortness of Breath/Dyspnea Stated Complaint: sob Time Seen by Provider: 09/29/24 20:55 Source: patient Mode of arrival: Ambulatory Limitations: no limitations History of Present Illness HPI Narrative: 54-year-old female past medical history of substance abuse comes into the ED from home for evaluation of shortness of breath, she states that this started Related Data Home Medications Medication Instructions Recorded Confirmed albuterol sulfate 90 mcg/actuation 2 - 4 puff inhalation Q4H PRN 09/29/24 09/29/24 aerosol inhaler Shortness Of Breath Or Wheezing estradiol 0.0375 mg/24 hr 1 patch topical 2XW 09/29/24 09/29/24 semiweekly transdermal patch methadone 10 mg/5 mL oral solution 70 mg PO DAILY 09/29/24 09/29/24 progesterone micronized 100 mg 100 mg PO QPM 09/29/24 09/29/24 capsule Allergies Allergy/AdvReac Type Severity Reaction Status Date / Time No Known Drug Allergies Allergy Verified 08/17/22 17:36 Patient History Medical History (Updated 09/01/22 @ 00:01 by ) Heroin use Surgical History History of hysterectomy Social History Smoking Status: Former smoker substance use type: former substance user, heroin and IV drugs Smoking Status: Former smoker tobacco type: cigarettes alcohol intake frequency: holidays/special occasions only Exam Initial Vital Signs Initial Vital Signs: Vital Signs Temperature 98.6 F 09/29/24 20:15 Pulse Rate 104 H 09/29/24 20:15 Respiratory Rate 26 H 09/29/24 20:15 Blood Pressure 148/69 H 09/29/24 20:15 Pulse Oximetry 98 09/29/24 20:15 Oxygen Delivery Method Room Air 09/29/24 20:15 Course Vital Signs Vital signs: Vital Signs - 8 hr 09/29/24 20:15 Temperature 98.6 F Pulse Rate 104 H Respiratory Rate 26 H Blood Pressure 148/69 H Pulse Oximetry 98 Oxygen Delivery Method Room Air Discharge Plan Departure Prescriptions: No Action methadone 10 mg/5 mL Solution 70 mg PO DAILY albuterol sulfate 90 mcg/actuation HFA aerosol inhaler 2 - 4 puff inhalation Q4H PRN (Reason: Shortness Of Breath Or Wheezing) estradiol 0.0375 mg/24 hr patch semiweekly 1 patch topical 2XW progesterone micronized 100 mg capsule 100 mg PO QPM Referrals: Maryann Ramos ARNP [Primary Care Provider] -
--- NOTE | 2024-09-29 21:18 | PC.NURSE ---
LEN Yancey went in room to start PIV to get labs. She explained everything she was doing and what was happening. Pt became agitated and eloped. Charge nurse LEN Carranza and Dr. Mariya hedrick. Tere called [facility] and notified of pt and her possible exposure to TB.
== END 2024-09-29 21:22 | disposition left against medical advice (07) ==
PROVIDERS: Emergency Provider Student in an Organized Health Care Education/Training Program; PCP Nurse Practitioner
DX: R06.02 Shortness of breath (principal)
CPT/HCPCS: 99281

== ENCOUNTER → 2024-10-20 13:24 | Outpatient (CLI) | payer OTHER, SELFPAY ==
--- NOTE | 2024-10-20 13:28 | DI.RAD.S_ITS ---
PROCEDURE: XR CHEST 2V INDICATIONS: Contact with and (suspected) exposure to tuberculosis TECHNIQUE: 2 views of the chest were acquired. COMPARISON: [facility], CR, XR CHEST 1V, 02/02/2019, 14:27. FINDINGS: Surgical changes and devices: None. Lungs and pleura: Lungs are clear. No pleural effusions or pneumothorax. There is mild hyperinflation. Mediastinum: Mediastinal contours are normal. Heart size is normal. Bones and chest wall: No suspicious bony abnormalities. Soft tissues appear unremarkable. IMPRESSION: No acute cardiopulmonary abnormality is seen. Dictated by: Erika Baumann M.D. on 10/20/2024 at 16:02 Approved by: Erika Baumann M.D. on 10/20/2024 at 16:04
== END ==
PROVIDERS: PCP Nurse Practitioner; Referring Provider Physician Assistant; Visit Provider Physician Assistant
DX: Z20.1 Contact with and (suspected) exposure to tuberculosis (principal)
CPT/HCPCS: 71046

== ENCOUNTER 2024-11-17 16:01 | Emergency (ER) | payer OTHER, SELFPAY ==
[2024-11-17 16:10] VITALS: BP 150/82; PULSE 107; RESP 18; TEMP 37.2; O2SAT 97; BMI 30.1
--- NOTE | 2024-11-17 16:41 | ED_ITS ---
HPI - General Adult General Chief complaint: Upper Respiratory Symptoms Stated complaint: Poss Covid Time Seen by Provider: 11/17/24 16:29 Source: patient Mode of arrival: Ambulatory History of Present Illness HPI narrative: 54-year-old woman with no significant medical issues but does note that she will occasionally get coughing and wheezing post viral infection. On the 05 of November she started getting sick with fevers, significant cough, was in bed for a couple of days did test positive for COVID. She has been hydrating nicely with Gatorade, finds that she is no longer nauseated, but her dry cough is persisting to the point where she is having difficulty getting any sleep. Fevers have resolved at this point she has no more abdominal pain aside from musculoskeletal pain from the cough. Related Data Home Medications ?Medication ?Instructions ?Recorded ?Confirmed albuterol sulfate 90 mcg/actuation 2 - 4 puff inhalati on Q4H PRN 09/29/24 09/29/24 aerosol inhaler Shortness Of Breath Or Wheez ing estradiol 0.0375 mg/24 hr 1 patch topical 2XW 09/29/24 09/29/24 semiweekly transdermal patch methadone 10 mg/5 mL oral solution 70 mg PO DAILY 11/1809/29/24 progesterone micronized 100 mg 100 mg PO QPM 09/29/24 09/29/24 capsule Previous Rx's ?Medication ?Instructions ?Recorded albuterol sulfate 90 mcg/actuation 2 puff inhalation Q 6H PRN 11/17/24 aerosol inhaler shortness of breath or wheez ing #8.5 grams prednisone 20 mg tablet 20 mg PO DAILY #10 tabs 10/26 09/18 Allergies Allergy/AdvReac Type Severity Reaction Status Date / Time No Known Drug Allergies Allergy Verified 11/17/24 16:10 Review of Systems Review of Systems Narrative: Pertinent positive and negative findings as per HPI Patient History Medical History (Updated 11/17/24 @ 16:48 by Elizabet Dietrich MD) Heroin use Surgical History History of hysterectomy Social History substance use type: former substance user, heroin and IV drugs Smoking Status: Former smoker tobacco type: cigarettes alcohol intake frequency: holidays/special occasions only Exam Initial Vital Signs Initial Vital Signs: Vital Signs Temperature 98.9 F 11/17/24 16:10 Pulse Rate 107 H 11/17/24 16:10 Respiratory Rate 18 11/17/24 16:10 Blood Pressure 150/82 H 11/17/24 16:10 Pulse Oximetry 97 11/17/24 16:10 Oxygen Delivery Method Room Air 11/17/24 16:10 General: Fatigued but in no acute distress. Able to give a complete and coherent history. Well-nourished well-developed HEENT: Moist mucous membranes, normal sclera with reactive pupils, Respiratory: Lungs with scattered wheeze in all lung quan, no rhonchi, no respiratory distress Cardiac: Tachycardic but otherwise Regular rate and rhythm no murmurs no bruits Psych: Cooperative, appropriate insight and affect Course Vital Signs Vital signs: Vital Signs - 8 hr 11/17/24 16:10 Temperature 98.9 F Pulse Rate 107 H Respiratory Rate 18 Blood Pressure 150/82 H Pulse Oximetry 97 Oxygen Delivery Method Room Air Medical Decision Making [facility] Narrative Medical decision making narrative: 54-year-old woman now on day 12 of upper respiratory complaints, she did test positive for COVID initially. Nausea, vomiting, severe headaches, myalgias and overall misery is significantly improving however dry cough is continuing to interrupt her sleep and she comes in for further evaluation. No evidence of hypoxia, she does not show any signs of secondary bacterial pneumonia but she does have moderate wheeze, oxygen saturations on room air are at 98%. In the past she has needed albuterol after upper respiratory infections. At this point I believe the infectious part of COVID has essentially run its course and now she has persistent postviral cough secondary to her mild intermittent asthma. We will place her on 7 days prednisone and if her an albuterol inhaler along with spacer. No indication for antibiotics, no need for further evaluation, imaging studies or hospitalization. She is safe for discharge Discharge Plan Departure Patient Disposition: Home Clinical Impression: COVID-19 Asthma Qualifiers: Asthma severity: mild Asthma persistence: intermittent Asthma complication type: with acute exacerbation Qualified Code(s): J45.21 - Mild intermittent asthma with (acute) exacerbation Instructions: DI for Asthma -- Adult Activity Restrictions/Additional Instructions: Thank you for coming in today On day 12 of symptoms, you are no longer infectious with the COVID virus. Sounds like you has gotten through the worst of things and are now dealing with post viral reactive airway disease, that persistent dry cough that is keeping you awake. I sent a prescription for prednisone, a steroid to [facility]. Please take 2 pills once a day for the 1st 3 days and then 1 pill for an additional 4 days I have also given you a prescription for an albuterol inhaler with spacer. You can use this up to 4 times a day. Using this before you go to bed can definitely help you sleep better You can still continue to use [id number] cough medicines with both of these if it helps If you find that you are getting worse or develop any new symptoms, please feel free to return to the emergency department for further evaluation. Prescriptions: New prednisone 20 mg tablet 20 mg PO DAILY Qty: 10 0RF Rx Instructions: 40 mg for 3 days, 20mg for 4 days albuterol sulfate 90 mcg/actuation HFA aerosol inhaler 2 puff inhalation Q6H PRN (Reason: shortness of breath or wheezing) Qty: 8.5 0RF Rx Instructions: Please dispense with a spacer along with spacer use and MDI use instructions No Action methadone 10 mg/5 mL Solution 70 mg PO DAILY albuterol sulfate 90 mcg/actuation HFA aerosol inhaler 2 - 4 puff inhalation Q4H PRN (Reason: Shortness Of Breath Or Wheezing) estradiol 0.0375 mg/24 hr patch semiweekly 1 patch topical 2XW progesterone micronized 100 mg capsule 100 mg PO QPM Referrals: Maryann Ramos ARNP [Primary Care Provider, Family Practice] Stand Alone Forms: Patient Portal/API
[2024-11-17 16:59] VITALS: BP 118/77; PULSE 113; RESP 16; O2SAT 93
== END 2024-11-17 17:00 | disposition home or self-care (01) ==
PROVIDERS: Emergency Provider Emergency Medicine; PCP Nurse Practitioner
DX: U07.1 COVID-19 (principal); J45.21 Mild intermittent asthma with (acute) exacerbation; Z87.891 Personal history of nicotine dependence
CPT/HCPCS: 99281